=== PATIENT | male | born 1940 | race Caucasian/White ===

== ENCOUNTER 2018-08-27 05:39 | Outpatient (CLI) | payer MEDICARE ==
[~2018-08-27] VITALS: Ht 180.3 cm; Wt 98.9 kg
[~2018-08-27 05:39] MED LIST: ALLO300T2 PO; AMLO10TA PO; AMLO5TAB2 PO; ASP81CT PO; ASPI-892 PO; ATOR20TA66 PO; ATOR40TA70 PO; FINA1TAB10 PO; FINA5TAB6 PO; LOSA100T7 PO; METO100T5 PO; MTP25TSR PO; MV,M1TAB2 PO; NFAMINITAB PO; OMEG-105 PO; OMEG1CAP57 PO; PNT40TEC PO; SCR1T1 PO; TAMS0.4C2 PO; TAMS0.4C9 PO
[2018-08-27] MEDS ORDERED: LATA2.5D5 OU (13:32)
[2018-08-27] MEDS ORDERED: ASPI-586 PO (13:32)
[2018-08-27] MEDS ORDERED: FINA5TAB6 PO (13:32)
[2018-08-27] MEDS ORDERED: LOSA100T57 PO (13:32)
[2018-08-27] MEDS ORDERED: METO-395 PO (13:32)
[2018-08-27] MEDS ORDERED: MV M PO (13:32)
[2018-08-27] MEDS ORDERED: ATOR40TA70 PO (13:32)
[2018-08-27] MEDS ORDERED: TAMS0.4C98 PO (13:32)
[2018-08-27] MEDS ORDERED: AMLO10TA7 PO (13:32)
== END 2018-08-27 13:34 | disposition home or self-care (01) ==
LOC: PREOP 05:39
PROVIDERS: ATTEND Surgery
DX: Z01.818 Encounter for other preprocedural examination (principal)

== ENCOUNTER 2019-10-28 16:12 | Emergency (ER) | payer MEDICARE ==
[~2019-10-28] VITALS: Ht 177.8 cm; Wt 96.6 kg
[~2019-10-28 16:12] MED LIST changes: +AMLO10TA7 PO; +ASPI-586 PO; +LATA2.5D5 OU; +LOSA100T57 PO; +MTP100TCR PO; +MV M PO; +TMSL.4C PO
[2019-10-28] MEDS ORDERED: ONDANSETRON 4 MG/2 ML (SDV) Z0FRAN IVP ONE (16:30)
[2019-10-28] MEDS ORDERED: NS IV 1000 ML 1,000 ML IV SCH (16:30)
[2019-10-28 16:43] LABS: BASOPHILS % (AUTO) 0 % (0-10); EOSINOPHILS # (AUTO) 0.2 10^3/uL (0.0-0.3); EOSINOPHILS % (AUTO) 1 % (0-10); HEMATOCRIT 42 % (40-54); HEMOGLOBIN 14.2 G/DL (13.3-17.7); LYMPHOCYTES # (AUTO) 0.7 X 10^3 (1.0-4.0); LYMPHOCYTES % (AUTO) 6 % (12-44); MEAN CORPUSCULAR HEMOGLOBIN 30 PG (25-34); MEAN CORPUSCULAR HGB CONC 34 G/DL (32-36); MEAN CORPUSCULAR VOLUME 90 FL (80-99); MEAN PLATELET VOLUME 9.1 FL (7.4-10.4); MONOCYTES # (AUTO) 1.4 X 10^3 (0.0-1.0); MONOCYTES % (AUTO) 11 % (0-12); NEUTROPHILS # (AUTO) 10.2 X 10^3 (1.8-7.8); NEUTROPHILS % (AUTO) 82 % (42-75); PLATELET COUNT 187 10^3/uL (130-400); RED CELL DISTRIBUTION WIDTH 14.9 % (10.0-14.5); WHITE BLOOD COUNT 12.4 10^3/uL (4.3-11.0)
[2019-10-28 16:52] LABS: CHLORIDE 105 MMOL/L (98-107); POTASSIUM 3.9 MMOL/L (3.6-5.0); SODIUM 139 MMOL/L (135-145)
--- NOTE | 2019-10-28 16:52 | ED General ---
General Chief Complaint: General Problems/Pain Stated Complaint: HIGH BP,LEG PAIN Nursing Triage Note: patient complaint of fatigue x2-3 days. stats headache. works outside in the heat. nausea. chills last night. Nursing Sepsis Screen: No Definite Risk Source of Information: Patient Exam Limitations: No Limitations History of Present Illness Date Seen by Provider: Oct 28, 2019 Time Seen by Provider: 16:49 Initial Comments To ER by private vehicle with reports of general fatigue. This is been present for the past 2-3 days. 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 Most of his work is outdoors in the heat that she can go inside to cool off occasionally. He reports queasy stomach, nausea, headache, chills last night. History of coronary artery disease with stenting. When he had his last heart attack he had some of these similar symptoms. He denies any chest pain shortness of breath. He has not eaten anything since noon yesterday because of no appetite. Timing/Duration: 1-2 Days Severity: Moderate Associated Systoms: Headaches, Nausea/Vomiting, Weakness Allergies and Home Medications Allergies Coded Allergies: No Known Drug Allergies (Unverified , 12/29/09) Home Medications Allopurinol 300 Mg Tablet, 300 MG PO DAILY, (Reported) Amlodipine Besylate 10 Mg Tablet, 10 MG PO DAILY, (Reported) Aspirin 81 Mg Tablet.dr, 81 MG PO DAILY, (Reported) Atorvastatin Calcium 40 Mg Tablet, 20 MG PO HS, (Reported) take 1/2 of 40mg tab Finasteride 5 Mg Tablet, 5 MG PO DAILY, (Reported) Latanoprost 2.5 Ml Drops, 1 DROP OU HS, (Reported) Losartan Potassium 100 Mg Tablet, 50 MG PO BID, (Reported) take 1/2 of 100mg tab Metoprolol Succinate 100 Mg Tab.er.24h, 50 MG PO BID, (Reported) Mv,Minerals/FA/Lycopene/Ginkgo 1 Each Tablet, 1 EACH PO DAILY, (Reported) Tamsulosin HCl 0.4 Mg Cap, 0.4 MG PO DAILY, (Reported) Patient Home Medication List Home Medication List Reviewed: Yes Review of Systems Review of Systems Constitutional: see HPI EENTM: see HPI Respiratory: no symptoms reported; No cough, No short of breath Cardiovascular: see HPI; No chest pain; Hx of Intervention; No palpitations, No syncope; vascular heart diseas Genitourinary: no symptoms reported Musculoskeletal: no symptoms reported Skin: no symptoms reported Psychiatric/Neurological: No Symptoms Reported Hematologic/Lymphatic: No Symptoms Reported Immunological/Allergic: no symptoms reported Past Dsmymnn-Nieits-Dklsri Hx Patient Social History Alcohol Use: Denies Use Recreational Drug Use: No Smoking Status: Never a Smoker 2nd Hand Smoke Exposure: No Recent Foreign Travel: No Contact w/Someone Who Travel: No Recent Infectious Disease Expo: No Recent Hopitalizations: No Physical Abuse: No Sexual Abuse: No Mistreated: No Fear: No Immunizations Up To Date Tetanus Booster (TDap): Unknown Seasonal Allergies Seasonal Allergies: No Past Medical History Surgeries: Yes (hemmorhoids) Coronary Stent Respiratory: Yes Sleep Apnea Currently Using CPAP: Yes Cardiac: Yes (2006 DC w angioplasty; 2008 stent x1) Coronary Artery Disease, Heart Attack, High Cholesterol, Hypertension Neurological: Yes TIA Reproductive Disorders: No Sexually Transmitted Disease: No HIV/AIDS: No Genitourinary: Yes Benign Prostatic Hyperpl, Prostate Problems Gastrointestinal: No Gastroesophageal Reflux Musculoskeletal: Yes Arthritis, Chronic Back Pain, Gout Endocrine: No HEENT: Yes (bilat retinal detachment) Loss of Vision: Right Hearing Impairment: Hard of Hearing Cancer: No Psychosocial: No Integumentary: No Blood Disorders: No Family Medical History FH: stomach cancer maternal grandfather, Onset:60 years & older Myocardial infarction 19 FATHER, Onset:60 years & older 19 MOTHER, Onset:60 years & older G8 BROTHER, Onset:60 years & older paternal grandfather, Onset:Unknown Hypertension Physical Exam Vital Signs Vital Signs - First Documented 10/28/19 16:43 Temp 36.8 Pulse 67 Resp 20 B/P (MAP) 106/68 (81) Pulse Ox 93 O2 Delivery Room Air Capillary Refill : Less Than 3 Seconds Height, Weight, BMI Height: 5'11.00" Weight: 218lbs. 0.0oz. 98.193100ge; 30.00 BMI Method: General Appearance: No Apparent Distress, WD/WN, Other (alert and oriented, mentating well, blood pressure 106/68 heart rate 66 sinus oxygen 94% room air respiratory rate 13.) Eyes: Bilateral Eye Normal Inspection, Bilateral Eye PERRL, Bilateral Eye EOMI Neck: Full Range of Motion, Normal Inspection Respiratory: Lungs Clear, Normal Breath Sounds, No Accessory Muscle Use, No Respiratory Distress Cardiovascular: Regular Rate, Rhythm, Normal Peripheral Pulses Gastrointestinal: Normal Bowel Sounds, Non Tender, Soft Extremity: Normal Capillary Refill, Normal Inspection Neurologic/Psychiatric: Alert, Oriented x3 Skin: Normal Color, Warm/Dry Progress/Results/Core Measures Suspected Sepsis Recent Fever Within 48 Hours: No Infection Criteria Present: None New/Unexplained Altered Menta: No Sepsis Screen: No Definite Risk SIRS Temperature: Pulse: 67 Respiratory Rate: 20 Laboratory Tests 10/28/19 16:30: White Blood Count 12.4H Blood Pressure 106 /68 Mean: 81 Laboratory Tests 10/28/19 16:30: Creatinine 1.32H, Platelet Count 187, Total Bilirubin 3.0H Results/Orders Lab Results Laboratory Tests Test 10/28/19 16:30 10/28/19 17:35 Range/Units White Blood Count 12.4 H 4.3-11.0 10^3/uL Red Blood Count 4.67 4.35-5.85 10^6/uL Hemoglobin 14.2 13.3-17.7 G/DL Hematocrit 42 40-54 % Mean Corpuscular Volume 90 80-99 FL Mean Corpuscular Hemoglobin 30 25-34 PG Mean Corpuscular Hemoglobin Concent 34 32-36 G/DL Red Cell Distribution Width 14.9 H 10.0-14.5 % Platelet Count 187 130-400 10^3/uL Mean Platelet Volume 9.1 7.4-10.4 FL Neutrophils (%) (Auto) 82 H 42-75 % Lymphocytes (%) (Auto) 6 L 12-44 % Monocytes (%) (Auto) 11 0-12 % Eosinophils (%) (Auto) 1 0-10 % Basophils (%) (Auto) 0 0-10 % Neutrophils # (Auto) 10.2 H 1.8-7.8 X 10^3 Lymphocytes # (Auto) 0.7 L 1.0-4.0 X 10^3 Monocytes # (Auto) 1.4 H 0.0-1.0 X 10^3 Eosinophils # (Auto) 0.2 0.0-0.3 10^3/uL Basophils # (Auto) 0.0 0.0-0.1 10^3/uL Neutrophils % (Manual) 76 % Lymphocytes % (Manual) 8 % Monocytes % (Manual) 10 % Band Neutrophils 6 % Blood Morphology Comment NORMAL Sodium Level 139 135-145 MMOL/L Potassium Level 3.9 3.6-5.0 MMOL/L Chloride Level 105 98-107 MMOL/L Carbon Dioxide Level 23 21-32 MMOL/L Anion Gap 11 5-14 MMOL/L Blood Urea Nitrogen 16 7-18 MG/DL Creatinine 1.32 H 0.60-1.30 MG/DL Estimat Glomerular Filtration Rate 52 BUN/Creatinine Ratio 12 Glucose Level 129 H 70-105 MG/DL Calcium Level 9.0 8.5-10.1 MG/DL Corrected Calcium 9.0 8.5-10.1 MG/DL Total Bilirubin 3.0 H 0.1-1.0 MG/DL Aspartate Amino Transf (AST/SGOT) 118 H 5-34 U/L Alanine Aminotransferase (ALT/SGPT) 184 H 0-55 U/L Alkaline Phosphatase 150 H 40-136 U/L Total Creatine Kinase 90 30-200 U/L Troponin I < 0.028 <0.028 NG/ML B-Type Natriuretic Peptide 202.3 H <100.0 PG/ML Total Protein 7.3 6.4-8.2 GM/DL Albumin 4.0 3.2-4.5 GM/DL Thyroid Stimulating Hormone (TSH) 0.54 0.35-4.94 UIU/ML Urine Color YELLOW Urine Clarity CLEAR Urine pH 6.5 5-9 Urine Specific [place] 1.015 L 1.016-1.022 Urine Protein 1+ H NEGATIVE Urine Glucose (UA) NEGATIVE NEGATIVE Urine Ketones 1+ H NEGATIVE Urine Nitrite NEGATIVE NEGATIVE Urine Bilirubin 1+ H NEGATIVE Urine Urobilinogen 4.0 < = 1.0 MG/DL Urine Leukocyte Esterase NEGATIVE NEGATIVE Urine RBC (Auto) 2+ H NEGATIVE Urine RBC 25-50 H /HPF Urine WBC 2-5 /HPF Urine Crystals PRESENT H /LPF Urine Amorphous Sediment FEW RADHA URATES H /LPF Urine Bacteria TRACE /HPF Urine Casts NONE /LPF Urine Mucus MODERATE H /LPF Urine Culture Indicated NO My Orders Orders - [employer] Cbc With Automated Diff (10/28/19 16:29) Comprehensive Metabolic Panel (10/28/19 16:29) Thyroid Stimulating Hormone (10/28/19 16:29) Ua Culture If Indicated (10/28/19 16:29) Chest 1 View, Ap/Pa Only (10/28/19 16:29) BNP (10/28/19 16:29) Ekg Tracing (10/28/19 16:29) Troponin I (10/28/19 16:29) Ed Iv/Invasive Line Start (10/28/19 16:29) Ns Iv 1000 Ml (Sodium Chloride 0.9%) (10/28/19 16:30) Ondansetron Injection (Zofran Injectio (10/28/19 16:30) Manual Differential (10/28/19 16:30) Creatine Kinase (10/28/19 17:07) Ns Iv 500 Ml (Sodium Chloride 0.9%) (10/28/19 17:45) Medications Given in ED Current Medications Medications Dose Ordered Sig/Leandro Route Start Time Stop Time Status Last Admin Dose Admin Ondansetron HCl 8 mg ONCE ONCE IVP 10/28/19 16:30 10/28/19 16:33 DC 10/28/19 16:53 8 MG Vital Signs/I&O 10/28/19 10/28/19 16:43 19:01 Temp 36.8 36.9 Pulse 67 59 Resp 20 18 B/P (MAP) 106/68 (81) 119/69 Pulse Ox 93 93 O2 Delivery Room Air Room Air Capillary Refill : Less Than 3 Seconds Blood Pressure Mean: 81 Departure Communication (Admissions) 1804-patient states that he is feeling a little better at this time, heart rate 61 sinus blood pressure 115/67 oxygen 94% room air. His urine was rather concentrated and dark. He received a total of 1.5 L of IV fluids. Absolutely no tenderness to palpation to the right upper quadrant nor has he had any pain to this location. Suspect liver enzyme elevation secondary to dehydration/heat related illness. I have him follow-up with Dr. Orlando next week for recheck of these. We'll send him home to hydrate and stay out of the heat this weekend. Impression Primary Impression: Acute renal failure (ARF) Qualified Codes: N17.9 - Acute kidney failure, unspecified Additional Impressions: Dehydration Heat effects Disposition: HOME, SELF-CARE Condition: Improved Departure-Patient Inst. Decision time for Depature: 18:11 Referrals: MIGUEL ORLANDO MD (PCP/Family) Primary Care Physician Patient Instructions: Why Water Is Important to Health Add. Discharge Instructions: 1. Stay out of the heat this weekend. Stay indoors in the air conditioning and drink plenty of fluids. Follow-up with Dr. Orlando next week. Call tomorrow to make an appointment to be seen. Return to ER for any worsening or other concerns in the meantime. All discharge instructions reviewed with patient and/or family. Voiced understanding. Work/School Note: Work Release Form Date Seen in the Emergency Department: Oct 28, 2019 Return to Work: Oct 30, 2019 Copy Copies To 1: MIGUEL ORLANDO MD, PETER J APRN Oct 28, 2019 16:52
[2019-10-28 16:54] LABS: GLUCOSE 129 MG/DL (70-105)
[2019-10-28 16:55] LABS: TOTAL PROTEIN 7.3 GM/DL (6.4-8.2)
[2019-10-28 16:56] LABS: CARBON DIOXIDE 23 MMOL/L (21-32)
[2019-10-28 16:58] LABS: ALKALINE PHOSPHATASE 150 U/L (40-136); CREATININE SERUM 1.32 MG/DL (0.60-1.30); GFR ESTIMATED 52
[2019-10-28 16:59] LABS: BUN/CREATININE RATIO 12
[2019-10-28 17:01] LABS: ALANINE AMINOTRANSFERASE 184 U/L (0-55); BAND NEUTROPHILS 6 %; LYMPHOCYTES % (MANUAL) 8 %; MONOCYTES % (MANUAL) 10 %; NEUTROPHILS % (MANUAL) 76 %; RBC MORPH NORMAL
--- NOTE | 2019-10-28 17:27 | Diagnostic Imaging Report ---
EXAMINATION: Portable erect AP chest at 05:19 p.m. INDICATION: Weakness, chills. FINDINGS: The cardiomegaly noted on the prior exam of 09/07/2015 is again evident and no different. The lungs are clear. There is no sign of failure, pneumonia, or pleural effusion. The mediastinum is not widened. The osseous structures are intact. IMPRESSION: There is cardiomegaly, but there is no evidence for an acute cardiopulmonary abnormality. Dictated by: Dictated on workstation # [id number]
[2019-10-28 17:44] LABS: CLARITY,URINE CLEAR; COLOR,URINE YELLOW; GLUCOSE, URINE (UA) NEGATIVE (NEGATIVE); KETONES,URINE 1+ (NEGATIVE); LEUKOCYTE ESTERASE ,URINE NEGATIVE (NEGATIVE); NITRITE,URINE NEGATIVE (NEGATIVE); PH,URINE 6.5 (5-9); PROTEIN,URINE 1+ (NEGATIVE)
[2019-10-28] MEDS ORDERED: NS IV 500 ML 500 ML IV SCH (17:45)
[2019-10-28 18:00] LABS: AMORPHOUS SEDIMENT,UR FEW AMOR URATES /LPF; BACTERIA,URINE TRACE /HPF; BILIRUBIN,URINE 1+ (NEGATIVE); RBC,URINE 25-50 /HPF
[2019-10-28 19:01] VITALS: BP 119/69
--- OUTSIDE RECORDS SUMMARY | 2019-10-28 19:08 | XMS REPORT | CCD ---
Author Author Clementine Orlando Organization Jesusita Orlando MD, [facility] Address [address] [place] [address] Phone Care Team Providers Care Efficiency Manager Name Role Phone PP Unavailable CCM Unavailable Summary Purpose Interface Exchange Insurance Providers Payer name Policy type / Coverage type Covered alliance party ID Effective Begin Date Effective End Date WPS Medicare Part B Medicare Part B [id number] Unknown Unknown Family history Grandfather Diagnosis Age At Onset Heart disease Unknown Mother Diagnosis Age At Onset Stroke Unknown Diabetes Unknown Heart Attack Unknown Hyperlipidemia Unknown Hypertension Unknown Father Diagnosis Age At Onset Stroke Unknown Alcoholism Unknown Hypertension Unknown Hyperlipidemia Unknown Heart Attack Unknown Diabetes Unknown Brother Diagnosis Age At Onset Hyperlipidemia Unknown Hypertension Unknown Alcoholism Unknown Depression Unknown Heart Attack Unknown Stroke Unknown Social History Social History Element Codes Description Effective Dates Marital status Unknown S wilner 09/20/2014 Number of children Unknown 2 09/20/2014 Employment Unknown 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 09/20/[address]: 856492628 Never smoker 09/20/[address]: 422332816 Never drinks alcohol 09/20/2014 Allergies, Adverse Reactions, Alerts Substance Reaction Codes Entered Date Inactivated Date Status * NO KNOWN FOOD TOYA RGIES Unknown 09/20/2014 No Inactive Date Active allergy Unknown 12/12/2016 No In active Date Active lisinopril RxNorm: 64871 12/12/2016 No Inactive Date Active MORPHINE SULFATE RxNorm: 7052 12/12/2016 No Inactive Date Active Past Medical History Illness Codes Condition Status Onset Date Resolved Date Essential (primary) hypertension ICD-9: 401.9 ICD-10: I10 Active 11/12/2016 Unknown Mixed hyperlipidemia ICD-9: 272.2 ICD-10: E78.2 Active 11/12/2016 Unknown Encounter for genera l adult medical examination with abnormal findings ICD-9: V70.0 ICD-10: Z00.01 Active 12/12/2016 Unknown Hypertension Unknown Active 11/12/2016 Unknow n Gastro-esophageal re flux disease without esophagitis ICD-9: 530.81 ICD-10: K21.9 Active 11/12/2016 Unknown 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 Active 11/12/2016 Unknown Other fatigue ICD-9: 780.79 ICD-10: R53.83 Active 11/12/2016 Unknown Dizziness and giddiness ICD-9: 780.4 ICD-10: R42 Active 11/13/2015 Unknown Encounter for immuni zation ICD-9: V03.89 ICD-10: Z23 Active 09/04/2015 Unknown Laceration without f oreign body of abdominal wall, unspecified quadrant without penetration into peritoneal cavity, initial encounter ICD-9: 879.2 ICD-10: S31.119A Active 09/04/2015 Unknown Other iron deficienc y anemias ICD-9: 280.1 ICD-10: D50.8 Active 07/13/2015 Unknown Dark urine ICD-9: 791.9 Active 10/02/2014 Unknow n Hospital discharge f ollow-up ICD-9: V67.59 Active Unknown ORTHOSTATIC HYPOTENSION ICD-9: 458.0 Active 09/19/2014 Unknown Syncope ICD-9: 780.2 Active 09/19/2014 Unknow n Problems Condition Codes Effectiv e Dates Condition Status Essential (primary) hypertension ICD-9: 401.9 ICD-10: I10 11/12/2016 Active Mixed hyperlipidemia ICD-9: 272.2 ICD-10: E78.2 11/12/2016 Active Encounter for genera l adult medical examination with abnormal findings ICD-9: V70.0 ICD-10: Z00.01 12/12/2016 Active Hypertension Unknown 11/12/2016 Active Gastro-esophageal re flux disease without esophagitis ICD-9: 530.81 ICD-10: K21.9 11/12/2016 Active 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 11/12/2016 Active Other fatigue ICD-9: 780.79 ICD-10: R53.83 11/12/2016 Active Dizziness and giddiness ICD-9: 780.4 ICD-10: R42 11/13/2015 Active Encounter for immuni zation ICD-9: V03.89 ICD-10: Z23 09/04/2015 Active Laceration without f oreign body of abdominal wall, unspecified quadrant without penetration into peritoneal cavity, initial encounter ICD-9: 879.2 ICD-10: S31.119A 09/04/2015 Active Other iron deficienc y anemias ICD-9: 280.1 ICD-10: D50.8 07/13/2015 Active Dark urine ICD-9: 791.9 10/02/2014 Active Hospital discharge f ollow-up ICD-9: V67.59 09/19/2014 Active ORTHOSTATIC HYPOTENSION ICD-9: 458.0 09/19/2014 Active Syncope ICD-9: 780.2 09/19/2014 Active Medications Medication Codes Instruc tions Start Date Stop Date Sta tus Fill Instructions allopurinol 300 mg t ablet RxNorm: 233261 TAKE 1 TABLET BY MOUT H ONCE DAILY 11/25/2018 No Stop Date Active allopurinol 300 mg t ablet RxNorm: 452349 TAKE 1 TABLET BY MOUT H ONCE DAILY 05/08/2018 11/24/2018 In active atorvastatin 40 mg t ablet RxNorm: 730378 1/2 Tablet(s) PO perla y TAKE ONE-HALF TABLET BY MOUTH ONCE DAILY 02/05/2018 01/30/2019 Active allopurinol 300 mg t ablet RxNorm: 537601 TAKE 1 TABLET BY MOUT H ONCE DAILY 02/04/2018 05/07/2018 In active allopurinol 300 mg t ablet RxNorm: 530675 TAKE ONE TABLET BY MO UTH ONCE DAILY 10/20/2017 02/03/2018 In active atorvastatin 40 mg t ablet RxNorm: 989695 TAKE ONE-HALF TABLET BY MOUTH ONCE DAILY 02/10/2017 02/04/2018 In active allopurinol 300 mg t ablet RxNorm: 222488 TAKE ONE TABLET BY MO UTH ONCE DAILY 01/17/2017 10/13/2017 In active losartan 100 mg tablet RxNorm: 672644 1/2 Tablet(s) TAKE HALF TABLET BY MOUTH TWICE DAILY 11/12/2016 No Stop Date Active losartan 100 mg tablet RxNorm: 222110 TAKE ONE TABLET BY MOUTH TWICE DAILY 11/11/2016 11/11/2016 In active allopurinol 300 mg t ablet RxNorm: 338528 TAKE ONE TABLET BY [facility] ONCE DAILY 10/16/2016 01/13/2017 In active atorvastatin 40 mg t ablet RxNorm: 481612 TAKE ONE-HALF TABLET BY MOUTH ONCE DAILY 08/12/2016 02/07/2017 In active allopurinol 300 mg t ablet RxNorm: 512182 TAKE ONE TABLET BY [facility] ONCE DAILY 01/09/2016 10/04/2016 In active atorvastatin 40 mg t ablet RxNorm: 461941 TAKE ONE-HALF TABLET BY MOUTH ONCE DAILY 11/16/2015 08/12/2016 In active allopurinol 300 mg t ablet RxNorm: 030470 1 Tablet(s) PO daily 04/04/2015 12/29/2015 Inactive metoprolol tartrate 100 mg tablet RxNorm: 173928 1 Tablet(s) PO BID 11/28/2014 03/27/2015 Inactive metoprolol tartrate 100 mg tablet RxNorm: 605762 1/2 Tablet(s) PO BID 11/28/2014 11/27/2014 In active atorvastatin 40 mg t ablet RxNorm: 661037 1/2 Tablet(s) PO daily 11/14/2014 11/08/2015 Inactive losartan 100 mg tablet RxNorm: 608071 1 Tablet(s) PO BID 11/11/2014 11/05/2015 Inactive tamsulosin ER 0.4 mg capsule,extended release 24 hr RxNorm: 355353 1 Capsule(s) PO daily No Start Date Active metoprolol succinate ER 100 mg tablet,extended release 24 hr RxNorm: 396754 1/2 Tablet(s) PO BID No Start Date Active travoprost 0.004 % e ye drops RxNorm: 084682 1 Drop(s) ophthalmic (eye) right eye QHS No Start Date Active finasteride 5 mg tablet RxNorm: 581266 1 Tablet(s) PO daily No Start Date Active amlodipine 10 mg tablet RxNorm: 836696 1 Tablet(s) PO daily No Start Date Active ICaps oral RxNorm: 46767 oral No Start Date Active aspirin 81 mg tablet ,delayed release RxNorm: 639546 1 Tablet(s) PO daily No Start Date Active Vitamin C & E Combin ation oral RxNorm: [address] art Date 11/11/2016 Inactive atorvastatin 20 mg t ablet RxNorm: 804649 1 Tablet(s) PO daily No Start Date 11/13/2014 Inactive metoprolol tartrate 100 mg tablet RxNorm: 682594 1/2 Tablet(s) PO BID No Start Date 11/27/2014 Inactive Multivitamin & [employer] Worker al Formula oral RxNorm: oral No Start D ate 11/11/2016 Inactive losartan 100 mg tablet RxNorm: 681621 1/2 Tablet(s) PO BID No Start Date 11/10/2014 Inactive allopurinol 300 mg t ablet RxNorm: 214362 1 Tablet(s) PO daily No Start Date 04/03/2015 Inactive pantoprazole 40 mg t ablet,delayed release RxNorm: 565403 1 Tablet(s) PO daily No Start Date 11/11/2016 Inactive metoprolol tartrate 100 mg tablet RxNorm: 737835 1/2 Tablet(s) PO BID No Start Date 02/04/2018 Inactive Protonix 40 mg table t,delayed release RxNorm: 359448 1 Tablet(s) PO daily No Start Date 02/04/2018 Inactive Carafate 1 gram tablet RxNorm: 870706 1 Tablet(s) PO QID No Start Date 11/11/2016 Inactive Medication Administered No Medication Administered data Immunizations Vaccine Codes Date Status Tetanus, Diptheria, Pertussis CVX: 09/05/2015 completed Tetanus/Diptheria CVX: 09/05/2015 completed Pneumococcal (Adult) CVX: 33 09/20/2012 completed Assessments Condition Codes Effectiv e Dates Essential (primary) hypertension ICD -10: I10 ICD-9: 401.9 02/05/2018 Mixed hyperlipidemia ICD-10: E78.2 ICD-9: 272.2 02/05/2018 Encounter for general adult medical exam ination with abnormal findings ICD-10: Z00.01 ICD-9: V70.0 12/12/2016 Iron deficiency anemia secondary to blood loss (chroni c) ICD- 10: D50.0 ICD-9: 280.0 11/12/2016 Other fatigue ICD-10: R53.83 ICD-9: 780.79 11/12/2016 Gastro-esophageal reflux disease without esophagitis ICD-10: K21.9 ICD-9: 530.81 11/12/2016 Dizziness and giddiness ICD-10: R42 ICD-9: 780.4 11/14/2015 Laceration without foreign body of abdom inal wall, unspecified quadrant without penetration into peritoneal cavity, initial encounter ICD-10: S31.119A ICD-9: 879.2 09/05/2015 Encounter for immunization ICD-10: Z 23 ICD-9: V03.89 09/05/2015 Other iron deficiency anemias ICD-10 : D50.8 ICD-9: 280.1 07/14/2015 Dark urine ICD-9: 791.9 10/03/2014 Syncope ICD-9: 780.2 ORTHOSTATIC HYPOTENSION ICD-9: 458.0 09/20/2014 Hospital discharge follow-up ICD-9: V67.59 09/20/2014 Reason For Visit Reason For Visit Effective Dates Notes hypertension 02/05/2018 Annual Medicare Wellness Exam 12/12/2016 hypertension 11/12/2016 vertigo 11/14/2015 anemia 07/14/2015 Hospital Follow Up 09/20/2014 Results Observation Observation Code Item Item Code Result Date Comp Metabolic Abl612 NA 135 mEq/L 11/15/2015 Comp Metabolic Gfu195 K 4.2 mEq/L 11/15/2015 Comp Metabolic Zhw685 CL 103 mEq/L 11/15/2015 Comp Metabolic Pme510 CO2 25.0 mEq/L 11/15/2015 Comp Metabolic Che208 AN ION GAP 11 11/15/2015 Comp Metabolic Jye392 GL UCOSE 107 mg/dL 11/15/2015 Comp Metabolic Ymu202 Cr eat 1.3 mg/dL 11/15/2015 Comp Metabolic Zqi103 eG FR 55 ml/min/1.73m2 11/14 Comp Metabolic Bzz577 BUN 22 mg/dL 11/15/2015 Comp Metabolic Yqr943 B/ C Ratio 16.4 Ratio 11/15/2015 Comp Metabolic Zog482 CA LCIUM 9.2 mg/dL 11/15/2015 Comp Metabolic Nam548 AL K PHOS 68 U/L 11/15/2015 Comp Metabolic Hov641 T(SGOT) 15 U/L 11/15/2015 Comp Metabolic Kkw352 AL T(SGPT) 12 U/L 11/15/2015 Comp Metabolic Qcx980 BI LI T 0.6 mg/dL 11/15/2015 Comp Metabolic Rqx542 AL BUMIN 4.2 g/dL 11/15/2015 Comp Metabolic Qbt814 TP RO 6.9 g/dL 11/15/2015 Comp Metabolic Vpo405 GL OB 2.7 g/dL 11/15/2015 Comp Metabolic Lxg331 A/ G Ratio 1.6 Ratio 11/15/2015 Comp Metabolic Ozv570 Os mo 274 mOsmo 11/15/2015 Tsh Ord6 hTSH II 1.21 uIU/mL 11/15/2015 Cbc With Differential Ord2 WBC 6.60 K/ul 11/15/2015 Cbc With Differential Ord2 RBC 4.27 M/ul 11/15/2015 Cbc With Differential Ord2 HGB 12.8 g/dl 11/15/2015 Cbc With Differential Ord2 HCT 38.8 % 11/15/2015 Cbc With Differential Ord2 Neut% 51.2 % 11/15/2015 Cbc With Differential Ord2 MCV 90.9 fl 11/15/2015 Cbc With Differential Ord2 Lymph% 31.2 % 11/15/2015 Cbc With Differential Ord2 MCH 30.0 pg 11/15/2015 Cbc With Differential Ord2 [place]% 12.4 % 11/15/2015 Cbc With Differential Ord2 MCHC 33.0 pg 11/15/2015 Cbc With Differential Ord2 Eos% 4.4 % 11/15/2015 Cbc With Differential Ord2 PLT 136 K/ul 11/15/2015 Cbc With Differential Ord2 Baso% 0.8 % 11/15/2015 Cbc With Differential Ord2 RDW 16.4 % 11/15/2015 Cbc With Differential Ord2 Neut ABS# 3.38 K/ul 11/15/2015 Cbc With Differential Ord2 Lymph ABS# 2.06 K/ul 11/15/2015 Cbc With Differential Ord2 [place] ABS# 0.8 K/ul 11/15/2015 Cbc With Differential Ord2 Eos ABS# 0.3 K/ul 11/15/2015 Cbc With Differential Ord2 Baso ABS# 0.1 K/ul 11/15/2015 Cbc With Differential Ord2 WBC 6.48 K/ul 08/22/2015 Cbc With Differential Ord2 RBC 4.45 M/ul 08/22/2015 Cbc With Differential Ord2 HGB 11.9 g/dl 08/22/2015 Cbc With Differential Ord2 HCT 37.0 % 08/22/2015 Cbc With Differential Ord2 Neut% 54.1 % 08/22/2015 Cbc With Differential Ord2 MCV 83.1 fl 08/22/2015 Cbc With Differential Ord2 Lymph% 30.2 % 08/22/2015 Cbc With Differential Ord2 MCH 26.7 pg 08/22/2015 Cbc With Differential Ord2 [place]% 11.7 % 08/22/2015 Cbc With Differential Ord2 MCHC 32.2 pg 08/22/2015 Cbc With Differential Ord2 Eos% 3.7 % 08/22/2015 Cbc With Differential Ord2 PLT 204 K/ul 08/22/2015 Cbc With Differential Ord2 Baso% 0.3 % 08/22/2015 Cbc With Differential Ord2 RDW 23.4 % 08/22/2015 Cbc With Differential Ord2 Neut ABS# 3.50 K/ul 08/22/2015 Cbc With Differential Ord2 Lymph ABS# 1.96 K/ul 08/22/2015 Cbc With Differential Ord2 [place] ABS# 0.8 K/ul 08/22/2015 Cbc With Differential Ord2 Eos ABS# 0.2 K/ul 08/22/2015 Cbc With Differential Ord2 Baso ABS# 0.0 K/ul 08/22/2015 Cbc With Differential Ord2 New Analyzer Notice Please note new ref ranges s tarting 04-19-2015 due to implemntation of new five part differential hematolgy analyzer. 08/22/2015 Tibc Ord40 Iron 21 ug/dl 07/17/2015 Tibc Ord40 UIBC 383 ug/dL 07/17/2015 Tibc Ord40 TIBC 404 ug/dL 07/17/2015 Tibc Ord40 Fe-%Sat 5.2 % 07/17/2015 Cbc With Differential Ord2 WBC 6.74 K/ul 07/17/2015 Cbc With Differential Ord2 RBC 4.20 M/ul 07/17/2015 Cbc With Differential Ord2 HGB 10.1 g/dl 07/17/2015 Cbc With Differential Ord2 HCT 32.9 % 07/17/2015 Cbc With Differential Ord2 Neut% 55.4 % 07/17/2015 Cbc With Differential Ord2 MCV 78.3 fl 07/17/2015 Cbc With Differential Ord2 Lymph% 28.3 % 07/17/2015 Cbc With Differential Ord2 MCH 24.0 pg 07/17/2015 Cbc With Differential Ord2 [place]% 12.3 % 07/17/2015 Cbc With Differential Ord2 MCHC 30.7 pg 07/17/2015 Cbc With Differential Ord2 Eos% 3.7 % 07/17/2015 Cbc With Differential Ord2 PLT 267 K/ul 07/17/2015 Cbc With Differential Ord2 Baso% 0.3 % 07/17/2015 Cbc With Differential Ord2 RDW 19.1 % 07/17/2015 Cbc With Differential Ord2 Neut ABS# 3.73 K/ul 07/17/2015 Cbc With Differential Ord2 Lymph ABS# 1.91 K/ul 07/17/2015 Cbc With Differential Ord2 [place] ABS# 0.8 K/ul 07/17/2015 Cbc With Differential Ord2 Eos ABS# 0.3 K/ul 07/17/2015 Cbc With Differential Ord2 Baso ABS# 0.0 K/ul 07/17/2015 Cbc With Differential Ord2 New Analyzer Notice Please note new ref ranges s tarting 04-19-2015 due to implemntation of new five part differential hematolgy analyzer. 07/17/2015 Ferritin Ord22 FERRITIN 4.6 ng/mL 07/17/2015 Review of Systems System Result Effective Dates Constitutional No recent illness 02/05/2018 Constitutional No chills 02/05/2018 Constitutional No diaphoresis 02/05/2018 Constitutional No fever 02/05/2018 Eyes No blindness 2017 Ears/Nose/Throat/Neck No nasal discharge 02/05/2018 Cardiovascular No chest pain/pressure 02/05/2018 Cardiovascular No dyspnea 02/05/2018 Respiratory No cough 04/2017 Respiratory No dyspnea 1 04/07/2017 Neurologic No alteration of consciousness 02/05/2018 Neurologic No mental status change 02/05/2018 Gastrointestinal No abdominal pain 02/05/2018 Gastrointestinal No diarrhea 02/05/2018 Gastrointestinal No constipation 02/05/2018 Genitourinary/Nephrology No dysuria 02/05/2018 Musculoskeletal No joint complaint 02/05/2018 Dermatologic No rash 04/2017 Psychiatric No depression 02/05/2018 Psychiatric No anxiety 1 04/07/2017 Constitutional No recent illness 12/12/2016 Constitutional No chills 12/12/2016 Constitutional No diaphoresis 12/12/2016 Constitutional No fever 12/12/2016 Eyes No eye erythema 10/2016 Ears/Nose/Throat/Neck No nasal discharge 12/12/2016 Cardiovascular No chest pain/pressure 12/12/2016 Cardiovascular No dyspnea 12/12/2016 Respiratory No cough 10/2016 Respiratory No dyspnea 0 12/12/2016 Neurologic No alteration of consciousness 12/12/2016 Neurologic No mental status change 12/12/2016 Constitutional No recent illness 11/12/2016 Constitutional No night sweats 11/12/2016 Constitutional No chills 11/12/2016 Constitutional No fever 11/12/2016 Eyes vision change 11/12 Ears/Nose/Throat/Neck No headache 11/12/2016 Ears/Nose/Throat/Neck No nasal allergies 11/12/2016 Ears/Nose/Throat/Neck No nasal discharge 11/12/2016 Cardiovascular No chest pain/pressure 11/12/2016 Cardiovascular No edema 11/12/2016 Respiratory No chest congestion 11/12/2016 Respiratory No chest tightness 11/12/2016 Respiratory No cigarette smoking 11/12/2016 Respiratory No cough 11/2016 Gastrointestinal constipation 11/12/2016 Gastrointestinal No diarrhea 11/12/2016 Gastrointestinal No nausea 11/12/2016 Gastrointestinal No vomiting 11/12/2016 Genitourinary/Nephrology No dysuria 11/12/2016 Genitourinary/Nephrology No hematuria 11/12/2016 Musculoskeletal No bone fracture 11/12/2016 Musculoskeletal joint complaint 11/12/2016 Dermatologic No rash 11/2016 Dermatologic No sores Constitutional No anorexia 11/12/2016 Constitutional fatigue 0 11/12/2016 Constitutional No insomnia 11/12/2016 Constitutional No malaise 11/12/2016 Constitutional No weight loss 11/12/2016 Constitutional No weight gain 11/12/2016 Neurologic No alteration of consciousness 11/12/2016 Neurologic memory loss 0 11/12/2016 Gastrointestinal gas and bloating 11/12/2016 Gastrointestinal gastroesophageal reflux 11/12/2016 Constitutional No chills 11/14/2015 Constitutional No fever 11/14/2015 Eyes vision change 11/13 Ears/Nose/Throat/Neck No nasal allergies 11/14/2015 Ears/Nose/Throat/Neck No nasal discharge 11/14/2015 Cardiovascular No chest pain/pressure 11/14/2015 Cardiovascular No dyspnea 11/14/2015 Respiratory No productive sputum 11/14/2015 Respiratory No chest congestion 11/14/2015 Respiratory No cough 12/2015 Gastrointestinal No constipation 11/14/2015 Gastrointestinal No diarrhea 11/14/2015 Gastrointestinal No nausea 11/14/2015 Gastrointestinal No vomiting 11/14/2015 Musculoskeletal No joint complaint 11/14/2015 Dermatologic No rash 12/2015 Dermatologic No sores Neurologic No alteration of consciousness 11/14/2015 Ears/Nose/Throat/Neck No otalgia 11/14/2015 Ears/Nose/Throat/Neck No facial weakness 11/14/2015 Ears/Nose/Throat/Neck No facial pain 11/14/2015 Cardiovascular No syncope 11/14/2015 Cardiovascular No palpitations 11/14/2015 Respiratory No dyspnea 0 11/14/2015 Genitourinary/Nephrology No flank pain 11/14/2015 Neurologic No mental status change 11/14/2015 Neurologic No gait abnormality 11/14/2015 Neurologic No pain, facial 11/14/2015 Neurologic No paresthesia 11/14/2015 Neurologic No weakness 0 11/14/2015 Constitutional No chills 07/14/2015 Constitutional No fever 07/14/2015 Eyes vision change 07/13 Ears/Nose/Throat/Neck No headache 07/14/2015 Ears/Nose/Throat/Neck No nasal allergies 07/14/2015 Ears/Nose/Throat/Neck No nasal discharge 07/14/2015 Cardiovascular No chest pain/pressure 07/14/2015 Respiratory No chest congestion 07/14/2015 Respiratory No cough 11/2015 Gastrointestinal No constipation 07/14/2015 Gastrointestinal No diarrhea 07/14/2015 Gastrointestinal No nausea 07/14/2015 Gastrointestinal No vomiting 07/14/2015 Genitourinary/Nephrology No dysuria 07/14/2015 Genitourinary/Nephrology No hematuria 07/14/2015 Musculoskeletal No joint complaint 07/14/2015 Dermatologic No rash 11/2015 Dermatologic No sores Cardiovascular No dyspnea 07/14/2015 Respiratory No productive sputum 07/14/2015 Gastrointestinal No melena 07/14/2015 Neurologic No alteration of consciousness 07/14/2015 Constitutional recent illness 09/20/2014 Constitutional No fever 09/20/2014 Constitutional No chills 09/20/2014 Constitutional No night sweats 09/20/2014 Eyes vision change 09/20 Ears/Nose/Throat/Neck No headache 09/20/2014 Ears/Nose/Throat/Neck No nasal discharge 09/20/2014 Ears/Nose/Throat/Neck No nasal allergies 09/20/2014 Cardiovascular No edema 09/20/2014 Cardiovascular No chest pain/pressure 09/20/2014 Respiratory No chest congestion 09/20/2014 Respiratory No chest tightness 09/20/2014 Respiratory No cigarette smoking 09/20/2014 Respiratory No cough Gastrointestinal No constipation 09/20/2014 Gastrointestinal No diarrhea 09/20/2014 Gastrointestinal No nausea 09/20/2014 Gastrointestinal No vomiting 09/20/2014 Genitourinary/Nephrology No dysuria 09/20/2014 Genitourinary/Nephrology No hematuria 09/20/2014 Musculoskeletal No joint complaint 09/20/2014 Dermatologic No rash Dermatologic No sores Musculoskeletal No bone fracture 09/20/2014 Physical Exam Exam Name System Name It em Name Status Result Effective Dates Notes Full Exam - General 1994 Constitutional general appearance Overall: well developed 02/05/2018 None Full Exam - General 1994 Constitutional general appearance Overall: in no acute distress 02/05/2018 None Full Exam - General 1994 Constitutional general appearance Overall: well nourished 02/05/2018 None Full Exam - General 1994 Eyes conjunctiva/eyelids Overall: conjunctiva clear 02/05/2018 None Full Exam - General 1994 Eyes conjunctiva/eyelids Overall: eyelids normal 02/05/2018 None Full Exam - General 1994 Ears/Nose/Throat lips/teeth/gingiva Overall: benign lips 02/05/2018 None Full Exam - General 1994 Respiratory respiratory effort/rhythm Overall: no retractions 02/05/2018 None Full Exam - General 1994 Respiratory respiratory effort/rhythm Overall: normal rate 02/05/2018 None Full Exam - General 1994 Musculoskeletal head and neck Overall: head atraumatic 02/05/2018 None Full Exam - General 1994 Neurologic cranial nerves Overall: crainial nerves 2 - 12 grossly intact 02/05/2018 None Full Exam - General 1994 Psychiatric orientation/consciousness Overall: oriented to person, place and time 02/05/2018 None Full Exam - General 1994 Psychiatric mood and affect Overall: normal mood and affect 02/05/2018 None Full Exam - General 1994 Psychiatric appearance Overall: well-groomed, good eye contact 02/05/2018 None Full Exam - General 1994 Abdomen abdominal exam Overall: normal bowel sounds 02/05/2018 None Full Exam - General 1994 Abdomen abdominal exam Overall: no tenderness 02/05/2018 None Full Exam - General 1994 Integument inspection of skin Overall: few scattered moles, no gross abnormalities 02/05/2018 None Full Exam - General 1994 Cardiovascular auscultation of heart Overall: regular rate 02/05/2018 None Full Exam - General 1994 Cardiovascular auscultation of heart Overall: normal heart sounds 02/05/2018 None Full Exam - General 1994 Respiratory auscultation Overall: breath sounds clear bilaterally 02/05/2018 None Full Exam - General 1995 Constitutional general appearance Overall: well developed 12/12/2016 None Full Exam - General 1994 Constitutional general appearance Overall: in no acute distress 12/12/2016 None Full Exam - General 1995 Constitutional general appearance Overall: well nourished 12/12/2016 None Full Exam - General 1995 Eyes conjunctiva/eyelids Overall: conjunctiva clear 12/12/2016 None Full Exam - General 1994 Eyes conjunctiva/eyelids Overall: eyelids normal 12/12/2016 None Full Exam - General 1994 Ears/Nose/Throat lips/teeth/gingiva Overall: benign lips 12/12/2016 None Full Exam - General 1994 Respiratory respiratory effort/rhythm Overall: no retractions 12/12/2016 None Full Exam - General 1994 Respiratory respiratory effort/rhythm Overall: normal rate 12/12/2016 None Full Exam - General 1994 Musculoskeletal head and neck Overall: head atraumatic 12/12/2016 None Full Exam - General 1994 Neurologic cranial nerves Overall: crainial nerves 2 - 12 grossly intact 12/12/2016 None Full Exam - General 1994 Psychiatric orientation/consciousness Overall: oriented to person, place and time 12/12/2016 None Full Exam - General 1994 Psychiatric mood and affect Overall: normal mood and affect 12/12/2016 None Full Exam - General 1994 Psychiatric appearance Overall: well-groomed, good eye contact 12/12/2016 None Full Exam - General 1994 Constitutional general appearance Development: well developed 11/12/2016 None Full Exam - General 1994 Constitutional general appearance Development: appears stated age 0811/12/2016 None Full Exam - General 1994 Eyes conjunctiva/eyelids Overall: conjunctiva clear 11/12/2016 None Full Exam - General 1994 Eyes conjunctiva/eyelids Overall: cornea clear 11/12/2016 None Full Exam - General 1994 Eyes conjunctiva/eyelids Overall: eyelids normal 11/12/2016 None Full Exam - General 1994 Ears/Nose/Throat otoscopic exam Overall: external auditory canals clear 11/12/2016 None Full Exam - General 1994 Ears/Nose/Throat otoscopic exam Overall: tympanic membranes clear 11/12/2016 None Full Exam - General 1994 Neck inspection of neck Overall: normal size 11/12/2016 None Full Exam - General 1994 Neck inspection of neck Overall: normal appearance 11/12/2016 None Full Exam - General 1994 Respiratory auscultation Overall: breath sounds clear bilaterally 11/12/2016 None Full Exam - General 1994 Respiratory respiratory effort/rhythm Overall: no retractions 11/12/2016 None Full Exam - General 1994 Respiratory respiratory effort/rhythm Overall: normal rate 11/12/2016 None Full Exam - General 1994 Cardiovascular inspection of pedal pulses Dorsalis pedis: a normal exam 11/12/2016 None Full Exam - General 1994 Cardiovascular extremities Overall: no clubbing 11/12/2016 None Full Exam - General 1994 Cardiovascular auscultation of heart Overall: regular rate 11/12/2016 None Full Exam - General 1994 Cardiovascular auscultation of heart Overall: normal heart sounds 11/12/2016 None Full Exam - General 1994 Cardiovascular auscultation of heart Overall: no murmurs 11/12/2016 None Full Exam - General 1994 Abdomen abdominal exam Overall: no tenderness 11/12/2016 None Full Exam - General 1994 Abdomen abdominal exam Overall: normal bowel sounds 11/12/2016 None Full Exam - General 1994 Lymphatic neck nodes Overall: anterior cervical chain benign 11/12/2016 None Full Exam - General 1994 Lymphatic neck nodes Overall: posterior cervical chain benign 11/12/2016 None Full Exam - General 1994 Musculoskeletal digits and nails Nails: a normal exam 11/12/2016 None Full Exam - General 1994 Integument inspection of skin Overall: few scattered moles, no gross abnormalities 11/12/2016 None Full Exam - General 1994 Neurologic deep tendon reflexes Overall: deep tendon reflexes intact 11/12/2016 None Full Exam - General 1994 Neurologic cranial nerves Overall: crainial nerves 2 - 12 grossly intact 11/12/2016 None Full Exam - General 1994 Psychiatric orientation/consciousness Overall: oriented to person, place and time 11/12/2016 None Full Exam - General 1994 Psychiatric mood and affect Overall: normal mood and affect 11/12/2016 None Full Exam - General 1994 Psychiatric appearance Overall: well-groomed, good eye contact 11/12/2016 None Full Exam - General 1994 Eyes pupils and irises Pupil: irregular shape 11/12/2016 chronic Full Exam - General 1994 Eyes pupils and irises Pupil: fixed 11/12/2016 None Full Exam - General 1994 Constitutional general appearance Development: well developed 11/14/2015 None Full Exam - General 1994 Constitutional general appearance Development: appears stated age 0811/14/2015 None Full Exam - General 1994 Eyes conjunctiva/eyelids Overall: conjunctiva clear 11/14/2015 None Full Exam - General 1994 Eyes conjunctiva/eyelids Overall: cornea clear 11/14/2015 None Full Exam - General 1994 Eyes conjunctiva/eyelids Overall: eyelids normal 11/14/2015 None Full Exam - General 1994 Ears/Nose/Throat lips/teeth/gingiva Overall: benign lips 11/14/2015 None Full Exam - General 1994 Ears/Nose/Throat oral cavity/pharynx/larynx Overall: oral mucosa clear 11/14/2015 None Full Exam - General 1994 Respiratory auscultation Overall: breath sounds clear bilaterally 11/14/2015 None Full Exam - General 1994 Respiratory respiratory effort/rhythm Overall: no retractions 11/14/2015 None Full Exam - General 1994 Respiratory respiratory effort/rhythm Overall: normal rate 11/14/2015 None Full Exam - General 1994 Cardiovascular auscultation of heart Overall: regular rate 11/14/2015 None Full Exam - General 1994 Cardiovascular auscultation of heart Overall: normal heart sounds 11/14/2015 None Full Exam - General 1994 Abdomen abdominal exam Overall: no tenderness 11/14/2015 None Full Exam - General 1994 Abdomen abdominal exam Overall: normal bowel sounds 11/14/2015 None Full Exam - General 1994 Musculoskeletal gait and station Overall: normal gait 11/14/2015 None Full Exam - General 1994 Musculoskeletal gait and station Overall: normal station 11/14/2015 None Full Exam - General 1994 Integument inspection of skin Overall: no rash, lesions 11/14/2015 None Full Exam - General 1994 Neurologic cranial nerves Overall: crainial nerves 2 - 12 grossly intact 11/14/2015 None Full Exam - General 1994 Psychiatric orientation/consciousness Overall: oriented to person, place and time 11/14/2015 None Full Exam - General 1994 Psychiatric mood and affect Overall: normal mood and affect 11/14/2015 None Full Exam - General 1994 Psychiatric appearance Overall: well-groomed, good eye contact 11/14/2015 None Full Exam - General 1994 Ears/Nose/Throat otoscopic exam Overall: external auditory canals clear 11/14/2015 None Full Exam - General 1994 Ears/Nose/Throat otoscopic exam Overall: tympanic membranes clear 11/14/2015 None Full Exam - General 1994 Cardiovascular extremities Overall: no clubbing 11/14/2015 None Full Exam - General 1994 Musculoskeletal spine, ribs and pelvis Overall: good posture 11/14/2015 None Full Exam - General 1994 Neurologic gait Overall: no ataxia, no unsteadiness 11/14/2015 None Full Exam - General 1994 Neurologic mental status Overall: alert 11/14/2015 None Full Exam - General 1994 Neurologic mental status Overall: oriented 11/14/2015 None Full Exam - General 1994 Neurologic coordination Overall: no tremors 11/14/2015 None Full Exam - General 1994 Neurologic motor Overall: normal bulk, tone 11/14/2015 None Full Exam - General 1994 Neurologic motor Pronator drift: no drift 11/14/2015 None Full Exam - General 1994 Neurologic motor Strength (graded from 0-5, add X for atrophy): normal in all limbs 11/14/2015 None Full Exam - General 1994 Psychiatric speech Overall: normal quality, no aphasia 11/14/2015 None Full Exam - General 1994 Psychiatric speech Overall: normal quality, quantity, r ate 11/14/2015 None Full Exam - General 1994 Psychiatric thought Overall: normal form and content 11/14/2015 None Full Exam - General 1994 Psychiatric cognition/memory Overall: normal concentration, intelligence 11/14/2015 None Full Exam - General 1994 Psychiatric cognition/memory Overall: immediate, recent, remote memory intact 11/14/2015 None Full Exam - General 1994 Cardiovascular inspection of carotid pulses Overall: strong, bilaterally equal, no bruits 11/14/2015 None Full Exam - General 1994 Eyes pupils and irises Pupil: fixed 11/14/2015 chronic - pt states that he has had dajuan ral surgeries on the eye Full Exam - General 1994 Eyes pupils and irises Pupil: irregular shape 11/14/2015 chronic Full Exam - General 1994 Eyes pupils and irises Pupil: round 11/14/2015 None Full Exam - General 1994 Eyes pupils and irises Pupil: reactive to light 11/14/2015 None Full Exam - General 1994 Eyes pupils and irises Pupil: reactive to accommodation 11/14/2015 None Full Exam - General 1994 Constitutional general appearance Development: well developed 07/14/2015 None Full Exam - General 1994 Constitutional general appearance Development: appears stated age 0407/14/2015 None Full Exam - General 1994 Eyes conjunctiva/eyelids Overall: conjunctiva clear 07/14/2015 None Full Exam - General 1994 Eyes conjunctiva/eyelids Overall: cornea clear 07/14/2015 None Full Exam - General 1994 Eyes conjunctiva/eyelids Overall: eyelids normal 07/14/2015 None Full Exam - General 1994 Respiratory auscultation Overall: breath sounds clear bilaterally 07/14/2015 None Full Exam - General 1994 Respiratory respiratory effort/rhythm Overall: no retractions 07/14/2015 None Full Exam - General 1994 Respiratory respiratory effort/rhythm Overall: normal rate 07/14/2015 None Full Exam - General 1994 Cardiovascular auscultation of heart Overall: regular rate 07/14/2015 None Full Exam - General 1994 Cardiovascular auscultation of heart Overall: normal heart sounds 07/14/2015 None Full Exam - General 1994 Abdomen abdominal exam Overall: no tenderness 07/14/2015 None Full Exam - General 1994 Abdomen abdominal exam Overall: normal bowel sounds 07/14/2015 None Full Exam - General 1994 Neurologic cranial nerves Overall: crainial nerves 2 - 12 grossly intact 07/14/2015 None Full Exam - General 1994 Psychiatric orientation/consciousness Overall: oriented to person, place and time 07/14/2015 None Full Exam - General 1994 Psychiatric mood and affect Overall: normal mood and affect 07/14/2015 None Full Exam - General 1994 Psychiatric appearance Overall: well-groomed, good eye contact 07/14/2015 None Full Exam - General 1994 Ears/Nose/Throat lips/teeth/gingiva Overall: benign lips 07/14/2015 None Full Exam - General 1994 Ears/Nose/Throat oral cavity/pharynx/larynx Overall: oral mucosa clear 07/14/2015 None Full Exam - General 1994 Musculoskeletal gait and station Overall: normal gait 07/14/2015 None Full Exam - General 1994 Musculoskeletal gait and station Overall: normal station 07/14/2015 None Full Exam - General 1994 Integument inspection of skin Overall: no rash, lesions 07/14/2015 None Full Exam - General 1994 Psychiatric orientation/consciousness Overall: oriented to person, place and time 09/20/2014 None Full Exam - General 1994 Psychiatric mood and affect Overall: normal mood and affect 09/20/2014 None Full Exam - General 1994 Psychiatric appearance Overall: well-groomed, good eye contact 09/20/2014 None Full Exam - General 1994 Neurologic deep tendon reflexes Overall: deep tendon reflexes intact 09/20/2014 None Full Exam - General 1994 Neurologic cranial nerves Overall: crainial nerves 2 - 12 grossly intact 09/20/2014 None Full Exam - General 1994 Integument inspection of skin Overall: few scattered moles, no gross abnormalities 09/20/2014 None Full Exam - General 1994 Musculoskeletal digits and nails Nails: a normal exam 09/20/2014 None Full Exam - General 1994 Lymphatic neck nodes Overall: anterior cervical chain benign 09/20/2014 None Full Exam - General 1994 Lymphatic neck nodes Overall: posterior cervical chain benign 09/20/2014 None Full Exam - General 1994 Abdomen abdominal exam Overall: no tenderness 09/20/2014 None Full Exam - General 1994 Abdomen abdominal exam Overall: normal bowel sounds 09/20/2014 None Full Exam - General 1994 Cardiovascular auscultation of heart Overall: regular rate 09/20/2014 None Full Exam - General 1994 Cardiovascular auscultation of heart Overall: normal heart sounds 09/20/2014 None Full Exam - General 1994 Cardiovascular auscultation of heart Overall: no murmurs 09/20/2014 None Full Exam - General 1994 Cardiovascular extremities Overall: no clubbing 09/20/2014 None Full Exam - General 1994 Cardiovascular inspection of pedal pulses Dorsalis pedis: a normal exam 09/20/2014 None Full Exam - General 1994 Respiratory respiratory effort/rhythm Overall: no retractions 09/20/2014 None Full Exam - General 1994 Respiratory respiratory effort/rhythm Overall: normal rate 09/20/2014 None Full Exam - General 1994 Respiratory auscultation Overall: breath sounds clear bilaterally 09/20/2014 None Full Exam - General 1994 Neck inspection of neck Overall: normal size 09/20/2014 None Full Exam - General 1994 Neck inspection of neck Overall: normal appearance 09/20/2014 None Full Exam - General 1994 Ears/Nose/Throat otoscopic exam Overall: external auditory canals clear 09/20/2014 None Full Exam - General 1994 Ears/Nose/Throat otoscopic exam Overall: tympanic membranes clear 09/20/2014 None Full Exam - General 1994 Constitutional general appearance Development: well developed 09/20/2014 None Full Exam - General 1994 Constitutional general appearance Development: appears stated age 0609/20/2014 None Full Exam - General 1994 Eyes conjunctiva/eyelids Overall: conjunctiva clear 09/20/2014 None Full Exam - General 1994 Eyes conjunctiva/eyelids Overall: cornea clear 09/20/2014 None Full Exam - General 1994 Eyes conjunctiva/eyelids Overall: eyelids normal 09/20/2014 None Procedures Procedure Codes Date PPPS, SUBSEQ VISIT CPT- 4: G0439 12/12/2016 TENIVAC TD VACCINE N O PRSRV 7/> IM CPT-4: 85134 09/05/2015 IMMUNIZATION ADMIN CPT- 4: 82540 09/05/2015 URINALYSIS NONAUTO W /O SCOPE CPT-4: 46006 10/03/2014 Vital Signs Date Vital 02/05/2018 Blood Pressure 1: 120/66 Code: 8480-6 BMI: 31.1 Code: 23492-8 Heart Rate 1: 55 bpm Height: 5'11" SpO2: 95% Weight: 223 lbs 12/12/2016 BMI: 29.8 Code: 57195-4 Height: 5'11" Weight: 214 lbs 11/12/2016 Blood Pressure 1: 118/74 Code: 8480-6 BMI: 29.8 Code: 23015-3 Heart Rate 1: 57 bpm Height: 5'11" SpO2: 94% Weight: 214 lbs 11/14/2015 Blood Pressure 1: 110/60 Code: 8480-6 BMI: 29.8 Code: 81124-9 Heart Rate 1: 60 bpm Height: 5'11" SpO2: 96% Weight: 214 lbs 07/14/2015 Blood Pressure 1: 110/64 Code: 8480-6 BMI: 30.1 Code: 62279-9 Heart Rate 1: 55 bpm Height: 5'11" SpO2: 94% Weight: 216 lbs 09/20/2014 Blood Pressure 1: 156/86 Code: 8480-6 BMI: 29.0 Code: 10105-5 Heart Rate 1: 60 bpm Height: 5'11" Respiratory Rate: 20 bpm Weight: 208 lbs Functional Status No Functional Status data History of Present Illness Symptom Name Status Resu lt Effective Date Notes hypertension Onset and Resolution ongoing 02/05/2018 None hypertension Onset of Symptom during adulthood 02/05/2018 None hypertension Pertinent Findings Denies dizziness 02/05/2018 None hypertension Pertinent Findings Denies dyspnea 02/05/2018 None hypertension Pertinent Findings edema 02/05/2018 in his feet intermittentl y hyperlipidemia Onset of Symptom during adulthood 02/05/2018 None hypertension Quality alex abner hypertension 02/05/2018 None hyperlipidemia Onset and Resolution gradual in onset 02/05/2018 None hyperlipidemia Alleviating Factors medication 02/05/2018 None hyperlipidemia Exacerbating Factors diet 02/05/2018 None hyperlipidemia Significant Medications statin 02/05/2018 None hypertension Alleviating Factors medication 02/05/2018 None hypertension Blood Pressure Values patient checking blood pressure at home - did not bring in readings 02/05/2018 None hypertension Quality sta ble 02/05/2018 None hypertension Quality chr onic 02/05/2018 None hypertension Frequency of Episodes unchanged 02/05/2018 None hypertension Triggers no known associated factors 02/05/2018 None Annual Medicare Wellness Exam Aspirin Use yes 12/12/2016 81 Annual Medicare Wellness Exam Blood Glucose (self reported) desireable (below 100) 12/12/2016 None Annual Medicare Wellness Exam Blood Pressure (self reported) high (140/90 or higher) 12/12/2016 None Annual Medicare Wellness Exam Choles terol (self reported) desireable (below 200) 12/12/2016 None Annual Medicare Wellness Exam Depres nohelia (last 6 months) almost never 12/12/2016 None Annual Medicare Wellness Exam Depres nohelia or Hopelessness almost never 12/12/2016 None Annual Medicare Wellness Exam Descri be Your Health good 12/12/2016 None Annual Medicare Wellness Exam Exerci se Habits exercises at work days per week 12/12/2016 None Annual Medicare Wellness Exam Handli ng Stress usually anna effectively 12/12/2016 None Annual Medicare Wellness Exam Hemagl obin A-1C (self reported) don't know 12/12/2016 No ne Annual Medicare Wellness Exam Hours of Sleep 8 12/12/2016 None Annual Medicare Wellness Exam Intera ction with Friends yes 12/12/2016 None Annual Medicare Wellness Exam Intere sts & Pleasure almost never 12/12/2016 None Annual Medicare Wellness Exam Life S atisfaction dissatisfied 12/12/2016 None Annual Medicare Wellness Exam Motor Vehicle Safety always fastens seat belt: y 12/13/19 17 None Annual Medicare Wellness Exam Nutrition servings of vegetables / fruit per day: 1 12/12/2016 None Annual Medicare Wellness Exam Smokin g and Tobacco Use non smoker 12/12/2016 No ne Annual Medicare Wellness Exam Social & Emotional Support sometimes 12/12/2016 Non e Annual Medicare Wellness Exam Stress most of the time 12/12/2016 None Annual Medicare Wellness Exam Sun Exposure protects skin when outdoors: n 12/12/2016 None Annual Medicare Wellness Exam Alcohol Use occasional alcohol intake 12/12/2016 None hypertension Quality chr onic 11/12/2016 None hypertension Onset and Resolution ongoing 11/12/2016 None hypertension Onset of Symptom during adulthood 11/12/2016 None hypertension Blood Pressure Values pt checking blood pressure - see scanned document 11/12/2016 None hypertension Pertinent Findings Denies decreased energy 11/12/2016 None hypertension Pertinent Findings Denies dizziness 11/12/2016 None hypertension Pertinent Findings edema 11/12/2016 None hypertension Pertinent Findings Denies dyspnea 11/12/2016 None hypertension Pertinent Findings muscle weakness 11/12/2016 None hyperlipidemia Onset of Symptom during adulthood 11/12/2016 None hyperlipidemia Onset and Resolution ongoing 11/12/2016 None hyperlipidemia Quality c hronic 11/12/2016 None hyperlipidemia Pertinent Findings edema 11/12/2016 None dyspepsia Quality acute 11/12/2016 None dyspepsia Quality aching 11/12/2016 None dyspepsia Quality heartb urn 11/12/2016 None dyspepsia Onset and Resolution sudden in onset 11/12/2016 None dyspepsia Pertinent Findings Denies decreased energy level 11/12/2016 None dyspepsia Pertinent Findings Denies dyspnea 11/12/2016 None dyspepsia Pertinent Findings edema 11/12/2016 None dyspepsia Pertinent Findings heartburn 11/12/2016 None dyspepsia Pertinent Findings nausea 11/12/2016 None vertigo Onset and Resolution sudden in onset 11/14/2015 None vertigo Onset of Symptom 4 hours ago 11/14/2015 None vertigo Triggers no know n associated factors 11/14/2015 None vertigo Pertinent Findings dizziness 11/14/2015 None vertigo Pertinent Findings lightheadedness 11/14/2015 None anemia Quality acute 07/14/2015 None anemia Onset and Resolution gradual in onset 07/14/2015 None anemia Triggers no known associated factors 07/14/2015 None anemia Pertinent Findings decreased energy 07/14/2015 None anemia Pertinent Findings Denies fever 07/14/2015 None anemia Pertinent Findings Denies dyspnea 07/14/2015 None Hospital Follow Up _ car diac disease 09/20/2014 None Hospital Follow Up Quality chronic illness 09/20/2014 None Hospital Follow Up Location diffusely 09/20/2014 None Hospital Follow Up Onset and Resolution ongoing 09/20/2014 None Hospital Follow Up Severity moderate 09/20/2014 None Hospital Follow Up Alleviating Factors rest 09/20/2014 None Hospital Follow Up Exacerbating Factors medication 09/20/2014 None near-syncope/dizziness Quality improving 09/20/2014 None near-syncope/dizziness Quality intermittent 09/20/2014 None near-syncope/dizziness Quality lightheadedness 09/20/2014 None near-syncope/dizziness Onset and Resolutio n ongoing 09/20/2014 None near-syncope/dizziness Limitation on Activities moderately limits activities 09/20/2014 None Advance Directives No Advance Directive data Encounters Encounter Performer Loca tion Codes Date ( [id number] EST. P ATIENT, LEVEL III Diagnosis: Essential (primary) hypertension[ICD10: I10] Diagnosis: Mixed hyperlipidemia[ICD10: E78.2] Nellie Orlando MD, [facility] CPT-4: 28739 02/05/2018 ([id number]) [id number] EST. 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 PATIENT, LEVEL III Diagnosis: Dizziness and giddiness[ICD10: R42] Felicita Orlando MD, [facility] CPT-4: 03903 11/14/2015 [id number] EST. PATIENT, LEVEL IV Diagnosis: Other iron deficiency anemias[ICD10: D50.8] Felicita Orlando MD, [facility] CPT-4: 20749 07/14/2015 ([id number]) [id number] EST. [facility], L[facility] Diagnosis: Hospital discharge follow-up[ICD9: V67.59] Diagnosis: Syncope[ICD9: 780.2] Diagnosis: ORTHOSTATIC HYPOTENSION[ICD9: 458.0] Jesusita Orlando MD, [facility] CPT-4: 88434 09/20/2014 Plan of Care Planned Activity Notes C odes Status Date Visit Plan: Hypertension - well con trolled - continue with current medications, continue with no added salt diet. Pt has been encouraged to exercise daily. The pt has been advised to call the office if there are any acute concerns about change in blood pressure readings at home. Hyperlipidemia - pt has been counseled about appropriate diet, exercise, and need for low fat food choices. I have discussed the need for the patient to take medications as prescribed. If the patient has negative side effects from the medication, they are to CALL the office and not abruptly discontinue the medication without discussion with a practitioner in the office. We will check labs in 3-6 months for follow up on the patient's chronic medical problem and to assure normal liver response to medications. 02/05/2018 Appointment: Nellie Caro WPtel: [phone] [id number] (15 min) Moderate 02/05/2018 Patient Education: Patient Medication Summary Completed 02/05/2018 Patient Education: Hypertension Completed 02/05/2018 Patient Education: Cholesterol Management Completed 02/05/2018 Care Plan: Cbc With Differential Pending 02/05/2018 Care Plan: Comp Metabolic Pending 02/05/2018 Care Plan: Lipid Pending 02/05/2018 Visit Plan: Medicare Exam - today w e discussed the patients past history, immunizations, preventative exams/evaluations - colonoscopy, fecal occult blood testing, routine labs for renal function, glucose, cholesterol, osteoporosis evaluations, cardiovascular testing and cancer screenings. We have also discussed mental health and the signs/symptoms of depression. The patient was advised of home safety evaluations and the need to make sure that as the aging process continues, we need to be aware of different ways to make the home a safer place to reside. The patient has also been counseled that exercise is necessary - and of utmost importance as we age to help decrease fall risk and to maintain independece in the home. Today we discussed the need for the patient to create paperwork for Advanced directives as well as for the patient to provide this office with a copy of her DOPA paperwork for health care surrogate. 12/12/2016 Appointment: Felicita Jeffrey WPtel: [facility] [facility] - Annual Wellness Visit 12/12/2016 Patient Education: Patient Medication Summary Completed 12/12/2016 Visit Plan: Hypertension - well con trolled - continue with current medications, continue with no added salt diet. Pt has been encouraged to exercise daily. The pt has been advised to call the office if there are any acute concerns about change in blood pressure readings at home. Hyperlipidemia - pt has been counseled about appropriate diet, exercise, and need for low fat food choices. I have discussed the need for the patient to take medications as prescribed. If the patient has negative side effects from the medication, they are to CALL the office and not abruptly discontinue the medication without discussion with a practitioner in the office. We will check labs in 3-6 months for follow up on the patient's chronic medical problem and to assure normal liver response to medications. Iron def anemia-check labs GERD-symptoms uncontrolled, history of h.pyloir-also due for colonoscopy-refer to Dr Lynch for evaluation 11/12/2016 Appointment: Nellie Caro WPtel: [phone] [id number] (15 min) Moderate 11/12/2016 Patient Education: Patient Medication Summary Completed 11/12/2016 Care Plan: Comp Metabolic Pending 11/12/2016 Care Plan: Cbc With Differential Pending 11/12/2016 Care Plan: Tsh Pending 11/12/2016 Care Plan: Lipid Pending 11/12/2016 Care Plan: Total Psa Pending 11/12/2016 Care Plan: Referral Order SNOMED-CT : [id number] Pending 11/12/2016 Visit Plan: Pt states that he had a moment of dizziness and feeling light headed. Pt states that it lasted a minute or so. Pt denies loosing strength, and states that it just felt like his equilibrium was "off". Pt states that he went to his office and felt better. States that he had a cardiac stress test and appointment with his hand stemmer not that long ago. Pt has normal facial expressions, normal strength in all extremities. Will check labs, pt is to notify his hand stemmer. Pt is to notify clinic if symptoms return, or with any concerns. 11/14/2015 Appointment: Nellie Caro WPtel: [phone] [phone] (30 min) Complex 11/14/2015 Patient Education: Patient Medication Summary Completed 11/14/2015 Appointment: Injection 09/05/2015 Patient Education: Patient Medication Summary Completed 09/05/2015 Visit Plan: Anemia - occult stools negative, will check labs, will order iron infusion if indicated. Pt is to notify clinic with any questions or concerns. 07/14/2015 Visit Plan: Anemia - occult stools negative, will check labs, will order iron infusion if indicated. Pt is to notify clinic with any questions or concerns. 07/14/2015 Appointment: (15 min) Moderate 07/14/2015 Patient Education: Patient Medication Summary Completed 07/14/2015 Appointment: (30 min) Complex 10/04/2014 Appointment: Lab Draw 10/03/2014 Patient Education: Patient Medication Summary Completed 10/03/2014 Visit Plan: Hospital follow up - Th is was a follow up appointment from the patient's hospitalization during which time Dr. Orlando formulated the assessment and plan for the follow up on this patient's medical condition. Syncope- Continue to check blood pressure at home. If blood pressure below 90/50, hold metoprolol until appointment with Horologist Apprentice on 09/26. 09/20/2014 Appointment: (30 min) Complex 09/20/2014 Patient Education: Patient Medication Summary Completed 09/20/2014 Referral: Gerry Lynch [address] [facility] Referral Appointment Requested Instructions Comment REFER TO DR LYNCH CHECK LABS TODAY . Hypertension - well controlled - kwame nue with current medications, continue with no added salt diet. Pt has been encouraged to exercise daily. The pt has been advised to call the office if there are any acute concerns about change in blood pressure readings at home. Hyperlipidemia - pt has been counseled about appropriate diet, exercise, and need for low fat food choices. I have discussed the need for the patient to take medications as prescribed. If the patient has negative side effects from the medication, they are to CALL the office and not abruptly discontinue the medication without discussion with a practitioner in the office. We will check labs in 3-6 months for follow up on the patient's chronic medical problem and to assure normal liver response to medications. Iron def anemia-check labs GERD-symptoms uncontrolled, history of h.pyloir-also due for colonoscopy-refer to Dr Lynch for evaluation . Anemia - occult st ools negative, will check labs, will order iron infusion if indicated. Pt is to notify clinic with any questions or concerns. . Anemia - occult st ools negative, will check labs, will order iron infusion if indicated. Pt is to notify clinic with any questions or concerns. . Medicare Exam - to day we discussed the patients past history, immunizations, preventative exams/evaluations - colonoscopy, fecal occult blood testing, routine labs for renal function, glucose, cholesterol, osteoporosis evaluations, cardiovascular testing and cancer screenings. We have also discussed mental health and the signs/symptoms of depression. The patient was advised of home safety evaluations and the need to make sure that as the aging process continues, we need to be aware of different ways to make the home a safer place to reside. The patient has also been counseled that exercise is necessary - and of utmost importance as we age to help decrease fall risk and to maintain independece in the home. Today we discussed the need for the patient to create paperwork for Advanced directives as well as for the patient to provide this office with a copy of her DOPA paperwork for health care surrogate. . Pt states that he had a moment of dizziness and feeling light headed. Pt states that it lasted a minute or so. Pt denies loosing strength, and states that it just felt like his equilibrium was "off". Pt states that he went to his office and felt better. States that he had a cardiac stress test and appointment with his hand stemmer not that long ago. Pt has normal facial expressions, normal strength in all extremities. Will check labs, pt is to notify his hand stemmer. Pt is to notify clinic if symptoms return, or with any concerns. . Hypertension - wel l controlled - continue with current medications, continue with no added salt diet. Pt has been encouraged to exercise daily. The pt has been advised to call the office if there are any acute concerns about change in blood pressure readings at home. Hyperlipidemia - pt has been counseled about appropriate diet, exercise, and need for low fat food choices. I have discussed the need for the patient to take medications as prescribed. If the patient has negative side effects from the medication, they are to CALL the office and not abruptly discontinue the medication without discussion with a practitioner in the office. We will check labs in 3-6 months for follow up on the patient's chronic medical problem and to assure normal liver response to medications. Hold metoprolol jose ght. Take blood pressure in the morning. If blood pressure less than 100/60 in the morning, hold losartan. Stay home from work if blood pressure less than 90/50. Call office with a blood pressure report in the morning. . Hospital follow up - This was a follow up appointment from the patient's hospitalization during which time Dr. Orlando formulated the assessment and plan for the follow up on this patient's medical condition. Syncope- Continue to check blood pressure at home. If blood pressure below 90/50, hold metoprolol until appointment with Horologist Apprentice on 09/26.
--- OUTSIDE RECORDS SUMMARY | 2019-10-28 19:09 | XMS REPORT | Continuity of Care Document ---
Author Organization Unknown Address Unknown Phone Unavailable Allergies Active Description Code Type Severity Reaction Onset Reported/Identified Relationship to Patient Clinical Status Yes No Known Drug Allergies [id number] Drug Allergy Unknown N/A 12/29/2009 Medications There is no data. Problems Date Dx Coded Attending Type Code Diagnosis Diagnosed By 03/02/2014 JOSE LAWSON MD Ot 786.2 09/16/2014 SHEBA PAYNE MD Ot 272.0 PURE HYPERCHOLESTEROLEM 09/16/2014 SHEBA PAYNE MD Ot 276.51 DEHYDRATION 09/16/2014 SHEBA PAYNE MD Ot 280.0 CHR BLOOD LOSS ANEMIA 09/16/2014 SHEBA PAYNE MD Ot 401.9 HYPERTENSION NOS 09/16/2014 SHEBA PAYNE MD Ot 412 OLD MYOCARDIAL INFARCT 09/16/2014 SHEBA PAYNE MD Ot 458.9 HYPOTENSION NOS 09/16/2014 SHEBA PAYNE MD Ot 530.11 REFLUX ESOPHAGITIS 09/16/2014 SHEBA PAYNE MD Ot 535.40 OTH SPECIFIED GASTRITIS,W/O MENTION OF H 09/16/2014 SHEBA PAYNE MD Ot 535.50 UNSP GASTRITIS GASTRODUODENITIS W/O ME 09/16/2014 SHEBA PAYNE MD Ot 553.3 DIAPHRAGMATIC HERNIA 09/16/2014 SHEBA PAYNE MD Ot 584.9 ACUTE RENAL FAILURE, UNSPECIFIED 09/16/2014 SHEBA PAYNE MD Ot 600.00 HYPERTROPHY (BENIGN) OF PROSTATE W/O URI 09/16/2014 SHEBA PAYNE MD Ot 780.2 SYNCOPE AND COLLAPSE 09/16/2014 SHEBA PAYNE MD Ot V58.69 OTH MED,LT,CURRENT USE 10/26/2014 NELLIE CARO SHEEP SORTER Ot 789.09 07/26/2015 MIGUEL MIRANDA MD Ot D50.9 IRON DEFICIENCY ANEMIA, UNSPECIFIED 07/28/2015 MIGUEL MIRANDA MD Ot D50.9 IRON DEFICIENCY ANEMIA, UNSPECIFIED 07/31/2015 RUTH APARICIO, MIGUEL Bazan Ot D50.9 IRON DEFICIENCY ANEMIA, UNSPECIFIED 08/02/2015 RUTH APARICIO, MIGUEL Bazan Ot D50.9 IRON DEFICIENCY ANEMIA, UNSPECIFIED 08/02/2015 RUTH APARICIO, MIGUEL Bazan Ot D50.9 IRON DEFICIENCY ANEMIA, UNSPECIFIED 09/08/2015 NELLIE CARO SHEEP SORTER Ot I51.7 CARDIOMEGALY 09/08/2015 NELLIE CARO SHEEP SORTER Ot R07.81 PLEURODYNIA 09/30/2015 NELLIE CARO SHEEP SORTER Ot I51.7 CARDIOMEGALY 09/30/2015 NELLIE CARO SHEEP SORTER Ot R07.81 PLEURODYNIA 08/27/2018 SHEBA PAYNE MD Ot Z01.81 8 ENCOUNTER FOR OTHER PREPROCEDURAL EXAMIN 08/28/2018 SHEBA PAYNE MD, Ot Z01.81 8 ENCOUNTER FOR OTHER PREPROCEDURAL EXAMIN 09/01/2018 RENNY APARICIO, JOSE M Ot 786.2 COUGH 09/01/2018 NELLIE CARO SHEEP SORTER Ot 789.09 ABDOMINAL PAIN, OTHER SPECIFIED SITE 09/01/2018 NELLIE CARO SHEEP SORTER Ot I51.7 CARDIOMEGALY 09/01/2018 NELLIE CARO SHEEP SORTER Ot R07.81 PLEURODYNIA 09/02/2018 SHEBA PAYNE MD, Ot 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 09/02/2018 SHEBA PAYNE MD, Ot I10 ESSENTIAL (PRIMARY) HYPERTENSION 09/02/2018 SHEBA PAYNE MD, Ot I25.10 ATHSCL HEART DISEASE OF [place] CORONARY 09/02/2018 SHEBA PAYNE MD, Ot I25.2 OLD MYOCARDIAL INFARCTION 09/02/2018 SHEBA PAYNE MD, Ot K21.0 GASTRO-ESOPHAGEAL REFLUX DISEASE WITH ES 09/02/2018 SHEBA PAYNE MD, Ot K29.70 GASTRITIS, UNSPECIFIED, WITHOUT BLEEDING 09/02/2018 SHEBA PAYNE MD, Ot K44.9 DIAPHRAGMATIC HERNIA WITHOUT OBSTRUCTION 09/02/2018 SHEBA PAYNE MD, Ot K57.30 DVRTCLOS OF LG INT W/O PERFORATION OR AB 09/02/2018 SHEBA PAYNE MD, Ot K64.1 SECOND DEGREE HEMORRHOIDS 09/02/2018 SHEBA PAYNE MD, Ot M10.9 GOUT, UNSPECIFIED 09/02/2018 SHEBA PAYNE MD, Ot N40.0 BENIGN PROSTATIC HYPERPLASIA WITHOUT LOW 09/02/2018 SHEBA PAYNE MD, Ot Z12.11 ENCOUNTER FOR SCREENING FOR MALIGNANT NE 09/02/2018 SHEBA PAYNE MD, Ot Z79.82 SUPERVISOR CIGAR PROCESSING (CURRENT) USE OF ASPIRIN 09/02/2018 SHEBA PAYNE MD, Ot Z79.89 9 OTHER SUPERVISOR CIGAR PROCESSING (CURRENT) DRUG THERAPY 09/02/2018 SHEBA PAYNE MD, Ot Z80.0 FAMILY HISTORY OF MALIGNANT NEOPLASM OF 09/02/2018 SHEBA PAYNE MD, Ot Z85.82 8 PERSONAL HISTORY OF OTHER MALIGNANT NEOP 09/02/2018 SHEBA PAYNE MD, Ot Z86.73 PRSNL HX OF TIA (TIA), AND CEREB INFRC W 09/02/2018 SHEBA PAYNE MD, Ot Z88.5 ALLERGY STATUS TO NARCOTIC AGENT STATUS 09/02/2018 SHEBA PAYNE MD, Ot Z95.5 PRESENCE OF CORONARY ANGIOPLASTY IMPLANT 09/03/2018 SHEBA PAYNE MD, Ot 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 09/03/2018 SHEBA PAYNE MD, Ot I10 ESSENTIAL (PRIMARY) HYPERTENSION 09/03/2018 SHEBA PAYNE MD, Ot I25.10 ATHSCL HEART DISEASE OF [place] CORONARY 09/03/2018 SHEBA PAYNE MD, Ot I25.2 OLD MYOCARDIAL INFARCTION 09/03/2018 SHEBA PAYNE MD, Ot K21.0 GASTRO-ESOPHAGEAL REFLUX DISEASE WITH ES 09/03/2018 SHEBA PAYNE MD, Ot K29.70 GASTRITIS, UNSPECIFIED, WITHOUT BLEEDING 09/03/2018 SHEBA PAYNE MD, Ot K44.9 DIAPHRAGMATIC HERNIA WITHOUT OBSTRUCTION 09/03/2018 SHEBA PAYNE MD, Ot K57.30 DVRTCLOS OF LG INT W/O PERFORATION OR AB 09/03/2018 SHEBA PAYNE MD, Ot K64.1 SECOND DEGREE HEMORRHOIDS 09/03/2018 SHEBA PAYNE MD, Ot M10.9 GOUT, UNSPECIFIED 09/03/2018 SHEBA PAYNE MD, Ot N40.0 BENIGN PROSTATIC HYPERPLASIA WITHOUT LOW 09/03/2018 SHEBA PAYNE MD, Ot Z12.11 ENCOUNTER FOR SCREENING FOR MALIGNANT NE 09/03/2018 SHEBA PAYNE MD, Ot Z79.82 USP (CURRENT) USE OF ASPIRIN 09/03/2018 SHEBA PAYNE MD, Ot Z79.89 9 OTHER USP (CURRENT) DRUG THERAPY 09/03/2018 SHEBA PAYNE MD, Ot Z80.0 FAMILY HISTORY OF MALIGNANT NEOPLASM OF 09/03/2018 SHEBA PAYNE MD, Ot Z85.82 8 PERSONAL HISTORY OF OTHER MALIGNANT NEOP 09/03/2018 SHEBA PAYNE MD, Ot Z86.73 PRSNL HX OF TIA (TIA), AND CEREB INFRC W 09/03/2018 SHEBA PAYNE MD, Ot Z88.5 ALLERGY STATUS TO NARCOTIC AGENT STATUS 09/03/2018 SHEBA PAYNE MD, Ot Z95.5 PRESENCE OF CORONARY ANGIOPLASTY IMPLANT 09/03/2018 SHEBA PAYNE MD, Ot 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 09/03/2018 SHEBA PAYNE MD, Ot I10 ESSENTIAL (PRIMARY) HYPERTENSION 09/03/2018 SHEBA PAYNE MD, Ot I25.10 ATHSCL HEART DISEASE OF [place] CORONARY 09/03/2018 SHEBA PAYNE MD, Ot I25.2 OLD MYOCARDIAL INFARCTION 09/03/2018 SHEBA PAYNE MD, Ot K21.0 GASTRO-ESOPHAGEAL REFLUX DISEASE WITH ES 09/03/2018 SHEBA PAYNE MD, Ot K29.70 GASTRITIS, UNSPECIFIED, WITHOUT BLEEDING 09/03/2018 SHEBA PAYNE MD, Ot K44.9 DIAPHRAGMATIC HERNIA WITHOUT OBSTRUCTION 09/03/2018 SHEBA PAYNE MD, Ot K57.30 DVRTCLOS OF LG INT W/O PERFORATION OR AB 09/03/2018 SHEBA PAYNE MD, Ot K64.1 SECOND DEGREE HEMORRHOIDS 09/03/2018 SHEBA PAYNE MD, Ot M10.9 GOUT, UNSPECIFIED 09/03/2018 SHEBA PAYNE MD, Ot N40.0 BENIGN PROSTATIC HYPERPLASIA WITHOUT LOW 09/03/2018 SHEBA PAYNE MD, Ot Z12.11 ENCOUNTER FOR SCREENING FOR MALIGNANT NE 09/03/2018 SHEBA PAYNE MD, Ot Z79.82 SUPERVISOR CIGAR PROCESSING (CURRENT) USE OF ASPIRIN 09/03/2018 SHEBA PAYNE MD, Ot Z79.89 9 OTHER SUPERVISOR CIGAR PROCESSING (CURRENT) DRUG THERAPY 09/03/2018 SHEBA PAYNE MD, Ot Z80.0 FAMILY HISTORY OF MALIGNANT NEOPLASM OF 09/03/2018 SHEBA PAYNE MD, Ot Z85.82 8 PERSONAL HISTORY OF OTHER MALIGNANT NEOP 09/03/2018 SHEBA PAYNE MD, Ot Z86.73 PRSNL HX OF TIA (TIA), AND CEREB INFRC W 09/03/2018 SHEBA PAYNE MD, Ot Z88.5 ALLERGY STATUS TO NARCOTIC AGENT STATUS 09/03/2018 SHEBA PAYNE MD, Ot Z95.5 PRESENCE OF CORONARY ANGIOPLASTY IMPLANT 09/08/2018 SHEBA PAYNE MD, Ot 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 09/08/2018 SHEBA PAYNE MD, Ot I10 ESSENTIAL (PRIMARY) HYPERTENSION 09/08/2018 SHEBA PAYNE MD, Ot I25.10 ATHSCL HEART DISEASE OF [place] CORONARY 09/08/2018 SHEBA PAYNE MD, Ot I25.2 OLD MYOCARDIAL INFARCTION 09/08/2018 SHEBA PAYNE MD, Ot K21.0 GASTRO-ESOPHAGEAL REFLUX DISEASE WITH ES 09/08/2018 SHEBA PAYNE MD, Ot K29.70 GASTRITIS, UNSPECIFIED, WITHOUT BLEEDING 09/08/2018 SHEBA PAYNE MD, Ot K44.9 DIAPHRAGMATIC HERNIA WITHOUT OBSTRUCTION 09/08/2018 SHEBA PAYNE MD, Ot K57.30 DVRTCLOS OF LG INT W/O PERFORATION OR AB 09/08/2018 SHEBA PAYNE MD, Ot K64.1 SECOND DEGREE HEMORRHOIDS 09/08/2018 SHEBA PAYNE MD, Ot M10.9 GOUT, UNSPECIFIED 09/08/2018 SHEBA PAYNE MD, Ot N40.0 BENIGN PROSTATIC HYPERPLASIA WITHOUT LOW 09/08/2018 SHEBA PAYNE MD, Ot Z12.11 ENCOUNTER FOR SCREENING FOR MALIGNANT NE 09/08/2018 SHEBA PAYNE MD, Ot Z79.82 SUPERVISOR CIGAR PROCESSING (CURRENT) USE OF ASPIRIN 09/08/2018 SHEBA PAYNE MD, Ot Z79.89 9 OTHER SUPERVISOR CIGAR PROCESSING (CURRENT) DRUG THERAPY 09/08/2018 SHEBA PAYNE MD, Ot Z80.0 FAMILY HISTORY OF MALIGNANT NEOPLASM OF 09/08/2018 SHEBA PAYNE MD, Ot Z85.82 8 PERSONAL HISTORY OF OTHER MALIGNANT NEOP 09/08/2018 SHEBA PAYNE MD, Ot Z86.73 PRSNL HX OF TIA (TIA), AND CEREB INFRC W 09/08/2018 SHEBA PAYNE MD, Ot Z88.5 ALLERGY STATUS TO NARCOTIC AGENT STATUS 09/08/2018 SHEBA PAYNE MD, Ot Z95.5 PRESENCE OF CORONARY ANGIOPLASTY IMPLANT 06/04/2019 W J20.9 Acut e bronchitis Nellie Caro 06/04/2019 W R05 Cough Nellie Caro 06/08/2019 W D50.8 Othe r iron deficiency anemias Nellie Caro 06/08/2019 W J30.89 Oth er allergic rhinitis Nellie Caro 06/08/2019 W R05 Cough Nellie Caro 06/11/2019 W D50.8 Othe r iron deficiency anemias Nellie Caro 06/11/2019 W J30.89 Oth er allergic rhinitis Nellie Caro 06/11/2019 W R05 Cough [place], Nellie 08/09/2019 W I10 Essent ial (primary) hypertension Nellie Caro 08/09/2019 W K57.31 Div erticulosis large intestine w/o perforation or abscess w/bleeding Nellie Caro 08/09/2019 W M54.6 Thor acic back pain Nellie Caro 08/09/2019 W M62.830 Mu scle spasm of back Nellie Caro 08/09/2019 W I10 Essent ial (primary) hypertension Nellie Caro 08/09/2019 W K57.31 Div erticulosis large intestine w/o perforation or abscess w/bleeding Nellie Caro 08/09/2019 W M54.6 Thor acic back pain Nellie Caro 08/09/2019 W M62.830 Mu scle spasm of back Nellie Caro Procedures There is no data. Results There is no data. Encounters ACCT No. Visit Date/Time Discharge Status Pt. Type Provider Facility Loc./Unit Complaint [id number] 02/13/2017 09:56:05 02/13/2017 23:59:5 9 CLS Outpatient [id number] 09/02/2018 12:01:00 019 15:30:00 DIS Outpatient SHEBA PAYNE MD [facility] ENDO SCREENING [id number] 08/27/2018 05:39:00 019 13:34:00 DIS Outpatient SHEBA PAYNE MD [facility] PREOP COLONOSCOPY [id number] 09/07/2015 10:26:00 016 23:59:59 CLS Outpatient NELLIE CARO [facility] RAD FALL RIB PAIN [id number] 08/02/2015 07:02:00 016 09:10:00 DIS Outpatient MIGUEL MIRANDA MD [facility] ANEMIA, IRON DEFICIENCY [id number] 10/04/2014 13:36:00 015 23:59:59 CLS Outpatient NELLIE CARO [facility] RAD RT FLANK PAIN [id number] 09/15/2014 21:40:00 015 18:56:00 DIS Outpatient SHEBA PAYNE MD [facility] SD SYNCOPE,ORTHOSTATIC ARF ,DEHYDRATION [id number] 01/31/2014 14:19:00 014 23:59:59 CLS Outpatient JOSE LAWSON MD [facility] RAD COUGH [id number] 10/13/2012 08:22:00 013 23:59:59 CLS Outpatient [id number] 10/12/2012 09:50:00 013 23:59:59 CLS Outpatient
== END 2019-10-28 19:08 | disposition home or self-care (01) ==
LOC: EDUNIT# 16:12 → ER 16:14
DX: N17.9 Acute kidney failure, unspecified (principal); T67.9XXA Effect of heat and light, unspecified, initial encounter; E86.0 Dehydration; I25.10 Atherosclerotic heart disease of native coronary artery without angina pectoris; I10 Essential (primary) hypertension; I25.2 Old myocardial infarction; E78.00 Pure hypercholesterolemia, unspecified; N40.0 Benign prostatic hyperplasia without lower urinary tract symptoms; M10.9 Gout, unspecified; Z80.0 Family history of malignant neoplasm of digestive organs; Z82.49 Family history of ischemic heart disease and other diseases of the circulatory system; Z79.82 Long term (current) use of aspirin; Z95.5 Presence of coronary angioplasty implant and graft; Z86.73 Personal history of transient ischemic attack (TIA), and cerebral infarction without residual deficits
CPT/HCPCS: 36415; 71045; 80053; 81000; 82550; 83880; 84443; 84484; 85007; 85027; 93005; 96361; 96374

== ENCOUNTER → 2020-01-07 | Outpatient (CLI) | payer MEDICARE ==
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
== END ==
LOC: RAD 14:12
PROVIDERS: ATTEND Family Medicine
DX: R07.81 Pleurodynia (principal); V89.2XXA Person injured in unspecified motor-vehicle accident, traffic, initial encounter
CPT/HCPCS: 71046

== ENCOUNTER 2020-03-16 05:33 | Outpatient (RCR) | payer MEDICARE, OTHER ==
[~2020-03-16] VITALS: Ht 177 cm; Wt 96.8 kg
[~2020-03-16 05:33] MED LIST changes: +AMLO-251 PO; -AMLO10TA7 PO
[2020-03-20] MEDS ORDERED: TRM50T PO (10:54)
== END 2020-03-16 10:11 | disposition home or self-care (01) ==
LOC: PREOP 05:33
PROVIDERS: ATTEND Podiatrist Foot & Ankle Surgery
DX: Z01.812 Encounter for preprocedural laboratory examination (principal); Z20.828 Contact with and (suspected) exposure to other viral communicable diseases
CPT/HCPCS: 87635

== ENCOUNTER 2020-03-20 07:53 | Day surgery (SDC) | payer MEDICARE, OTHER ==
[2020-03-20] VITALS (8 sets, daily range): BP systolic 123–161; BP diastolic 75–82
[~2020-03-20] VITALS: Ht 177 cm; Wt 96.8 kg
[2020-03-20] MEDS ORDERED: BUPIVACAINE 0.5% 30 ML (SENSORCAINE) VIAL ONE (09:01)
[2020-03-20] MEDS ORDERED: LIDOCAINE 1% INJ 20 ML 20 ML VIAL ONE (09:01)
[2020-03-20] MEDS ORDERED: ceFAZolin INJECTION 1,000 MG in WATER (STERILE) FOR INJECTION 10 ML IV ONE (09:30)
[2020-03-20] MEDS ORDERED: CATHETER FLUSH 10 ML SYR IV PRN (09:30)
[2020-03-20] MEDS ORDERED: LACTATED RINGERS 1,000 ML IV PRN (09:30)
[2020-03-20] MEDS ORDERED: PROPOFOL INJECTION 50 ML IV ONE (09:45)
[2020-03-20] MEDS ORDERED: MIDAZOLAM 2 MG/2 ML (VERSED) VIAL ONE (09:45)
[2020-03-20] MEDS ORDERED: ONDANSETRON 4 MG/2 ML (SDV) Z0FRAN ONE (10:29)
--- NOTE | 2020-03-20 10:48 | Progress Note-Pre Operative ---
Pre-Operative Progress Note H&P Reviewed The H&P was reviewed, patient examined and no changes noted. Date Seen by Provider: Mar 20, 2020 Time Seen by Provider: 10:05 Date H&P Reviewed: Mar 20, 2020 Time H&P Reviewed: 10:05 Pre-Operative Diagnosis: Soft Tussue Lesion Right Hallux NAHOMI BRADFORD DPSabino Mar 20, 2020 10:48
--- NOTE | 2020-03-20 10:49 | Progress Note-Post Operative ---
Post-Operative Progess Note Surgeon (s)/Rope Laying Machine Operator (s) Surgeon NAHOMI BRADFORD DPM Rope Laying Machine Operator: none Pre-Operative Diagnosis Soft Tussue Lesion Right Hallux Post-Operative Diagnosis Same Procedure & Operative Findings Date of Procedure 03/20/20 Procedure Performed/Findings Excision of Soft Tissue Lesion Right Hallux Anesthesia Type MAC Estimated Blood Loss Estimated blood loss (mL): Minimal Specimens/Packing Specimens Removed Cyst Right Hallux Packing: None NAHOMI BRADFORD DPM Mar 20, 2020 10:49
[2020-03-20] MEDS ORDERED: TRM50T PO (10:54)
[2020-03-20] MEDS ORDERED: fentaNYL INJECTION 100 MCG/2 ML AMP IVP ONE (11:00)
[2020-03-20] MEDS ORDERED: ONDANSETRON 4 MG/2 ML (SDV) Z0FRAN IVP PRN (11:00)
[2020-03-20] MEDS ORDERED: HYDROcodone/APAP 5 MG/325 MG (LORTAB) TAB PO PRN (11:00)
[2020-03-20] MEDS ORDERED: LACTATED RINGERS 1,000 ML IV SCH (11:00)
[2020-03-20] MEDS ORDERED: MEPERIDINE (DEMEROL) INJ 50 MG/ML IVP ONE (11:00)
--- NOTE | 2020-03-20 12:46 | Anesthesia-General Post-Op ---
MAC Patient Condition Mental Status/LOC: Same as Preop Cardiovascular: Satisfactory Nausea/Vomiting: Absent Respiratory: Satisfactory Pain: Controlled Complications: Absent Post Op Complications Complications None Follow Up Care/Instructions Patient Instructions None needed. Anesthesiology Discharge Order Discharge Order Patient is doing well, no complaints, stable vital signs, no apparent adverse anesthesia problems. No complications reported per nursing. MELISSA KING CRNA Mar 20, 2020 12:46
--- NOTE | 2020-03-20 19:28 | OPERATIVE REPORT ---
DATE OF SERVICE: 03/20/2020 SURGEON: Millicent Bradford DPM PREOPERATIVE DIAGNOSIS: Soft tissue lesion, right hallux. POSTOPERATIVE DIAGNOSIS: Soft tissue lesion, right hallux. PROCEDURE: Excision of soft tissue lesion, right hallux. WOUND CLASS: Clean. ANESTHESIA: Monitored anesthesia care. HEMOSTASIS: Pneumatic ankle tourniquet at 250 mmHg. INDICATIONS: This 80-year-old male presents complaining of a painful soft tissue lesion to the right great toe distal phalanx. Conservative therapy is met with unsatisfactory results and the patient is agreeable after risks and complications were discussed at length. No guarantees were extended to the patient and he is willing to proceed. DESCRIPTION OF PROCEDURE: The patient was brought back to the operative table, placed in secure supine position. Appropriate timeout was performed. A right ankle tourniquet was applied over several layers of padding. The right foot was anesthetized utilizing 8 mL of 1:1 mixture of 1% Xylocaine, 0.5% Marcaine injected in a digital block to the right hallux. The right foot was then prepped and draped in normal sterile manner. The right foot was then elevated, allowed to exsanguinate after which the tourniquet was inflated to 250 mmHg. Attention was then directed to the dorsal aspect of the right hallux nail bed. A previous matrixectomy had been performed and there was no nail present. The incision was longitudinal along the nail plate from the eponychium to the hyponychium area. The soft tissue was gently teased back. after which a clear gelatinous material extruded through the incision. Despite a careful dissection, there was quite a bit of gelatinous material that was well-encapsulated. The gelatinous material and some of the capsule was then sent for gross and microscopic evaluation, but was grossly identified to be a ganglionic cyst. The source of the gelatinous material was noted to be the lateral aspect of the distal phalanx. When palpating and applying pressure to the plantar aspect of the distal phalanx, more gelatinous material extruded through approximately 3 to 4 mm aperture to the lateral aspect of the distal phalanx up into the dorsal aspect of the first digit distal phalanx. This area was flushed with copious amounts of normal saline. Curettage was performed to the lateral aspect of the distal phalanx followed by electrocautery. The area was flushed once again, after which closure was then performed in layers. Deep closure was performed with 4-0 Vicryl and skin closure was performed with 4-0 Prolene in a horizontal mattress type stitch. Postoperative injection consisted of 10 mg of dexamethasone into the nail bed as well as to the plantar aspect of the right hallux. Postoperative dressing consisted of Betadine soaked Adaptic, sterile 4 x 4's, compression applied to the dorsal aspect of the right hallux. Sterile 4 x 4, sterile Kerlix all secured with a Coban wrap. The tourniquet was released noting appropriate cap refill time to all digits of the right foot. Postoperative instructions were given to the patient. The patient tolerated the anesthesia and procedure well, was transported from the operating room to the recovery room with vital signs stable. He is to follow up in my office in 10 days' period of time or sooner if necessary. Job ID: [id number] DocumentID: [id number] Dictated Date: 03/20/2020 11:01:18 Director Of Manufacturing Date: 03/20/2020 19:27:50 Dictated By: MILLICENT BRADFORD DPM
== END 2020-03-20 12:35 | disposition home or self-care (01) ==
LOC: SDC 07:53
PROVIDERS: ATTEND Podiatrist Foot & Ankle Surgery
DX: M67.471 Ganglion, right ankle and foot (principal); Z88.5 Allergy status to narcotic agent; I10 Essential (primary) hypertension; I25.10 Atherosclerotic heart disease of native coronary artery without angina pectoris; G47.33 Obstructive sleep apnea (adult) (pediatric); M19.90 Unspecified osteoarthritis, unspecified site; G62.9 Polyneuropathy, unspecified; E66.9 Obesity, unspecified; Z68.30 Body mass index [BMI] 30.0-30.9, adult; Z79.82 Long term (current) use of aspirin; Z79.899 Other long term (current) drug therapy; Z95.5 Presence of coronary angioplasty implant and graft
CPT/HCPCS: 87081; 88304

== ENCOUNTER → 2020-07-04 | Outpatient (CLI) | payer MEDICARE ==
[~2020-07-04] MED LIST changes: +TRM50T PO
--- NOTE | 2020-07-04 10:47 | Diagnostic Imaging Report ---
PROCEDURE: MRI right lower extremity without contrast. TECHNIQUE: Multiplanar, multisequence non contrast-enhanced MRI of the right lower extremity was accomplished. INDICATION: Right great toe pain. COMPARISON: There are no prior studies available for comparison. FINDINGS: By history, the patient has had recent removal of the toenail of the great toe. On this exam in the nailbed, there is now a well-circumscribed 0.8 x 1.8 cm area of increased signal immediately adjacent to the anterior aspect of the distal phalanx of the great toe on the STIR sagittal series. This does suggest a cyst in this region. There are also two other smaller cysts along the posterior aspect of the distal phalanx of the great toe. These measure 1.0 and 1.1 cm in size. There is no other mass or cyst identified. There is no abnormal signal arising from the osseous structures to suggest bone edema or a fracture. The Lisfranc joint where visualized is unremarkable. The major ligaments and tendons seem to be intact. The soft tissues are unremarkable. IMPRESSION: 1. There is a 0.8 x 1.8 cm cyst adjacent to the anterior aspect of the distal phalanx of the great toe. Two other smaller cysts are also seen along the posterior aspect of the distal phalanx. These could represent ganglion cysts. 2. There is no other cyst or solid mass identified and there is no sign of an acute bony injury. Dictated by: Dictated on workstation # [id number]
== END ==
LOC: RAD 09:30
PROVIDERS: ATTEND Podiatrist Foot & Ankle Surgery
DX: M67.471 Ganglion, right ankle and foot (principal)

== ENCOUNTER 2021-02-20 08:17 | Emergency (ER) | payer MEDICARE ==
[~2021-02-20] VITALS: Ht 180 cm; Wt 94.0 kg
[2021-02-20 08:45] LABS: BASOPHILS % (AUTO) 0 % (0-10); EOSINOPHILS # (AUTO) 0.2 10^3/uL (0.0-0.3); EOSINOPHILS % (AUTO) 2 % (0-10); HEMATOCRIT 41 % (40-54); HEMOGLOBIN 13.6 g/dL (13.3-17.7); LYMPHOCYTES # (AUTO) 1.3 10^3/uL (1.0-4.0); LYMPHOCYTES % (AUTO) 12 % (12-44); MEAN CORPUSCULAR HEMOGLOBIN 31 pg (25-34); MEAN CORPUSCULAR HGB CONC 33 g/dL (32-36); MEAN CORPUSCULAR VOLUME 93 fL (80-99); MEAN PLATELET VOLUME 8.7 fL (9.0-12.2); MONOCYTES # (AUTO) 1.1 10^3/uL (0.0-1.0); MONOCYTES % (AUTO) 10 % (0-12); NEUTROPHILS # (AUTO) 8.3 10^3/uL (1.8-7.8); NEUTROPHILS % (AUTO) 76 % (42-75); PLATELET COUNT 225 10^3/uL (130-400); WHITE BLOOD COUNT 10.9 10^3/uL (4.3-11.0)
--- NOTE | 2021-02-20 08:52 | ED Abdominal Pain ---
General Chief Complaint: Abdominal/GI Problems Stated Complaint: ABDOMINAL PAIN Nursing Triage Note: ARRIVED VIA AMB TO ROOM 10. COMPLAINS OF RIGHT LOWER ABD PAIN STARTING AT 0345 THIS AM. PT ASLO COMPLAINS OF N/V. Source of Information: Patient Exam Limitations: No Limitations History of Present Illness Date Seen by Provider: Feb 20, 2021 Time Seen by Provider: 08:39 Initial Comments This 81-year-old gentleman presents to the emergency room with complaints of right lower quadrant pain that woke him this morning. He has been nauseated without vomiting or diarrhea. He reports no recent constipation but he feels a sensation like constipation this morning. He has had ureteral stones in the past requiring intervention and states his current pain is reminiscent of prior ureteral stone. He denies any fever, hematuria, or other complaints. He reports recently having a "cold" for about 3 weeks. He was tested for Covid and was reportedly negative. He was prescribed antibiotics last week for those symptoms. He reports a similar episode of this pain last week that was brief and resolved without treatment or evaluation. Allergies and Home Medications Allergies Coded Allergies: morphine (Verified Adverse Reaction, Mild, REDNESS AT INJECTION SITE, 03/20/20) Patient Home Medication List Home Medication List Reviewed: Yes Allopurinol (Allopurinol) 300 Mg Tablet, 300 MG PO DAILY, (Reported) Entered as Reported by: PAOLO OLIVEIRA on 07/21/15 1018 Amlodipine Besylate (Amlodipine Besylate) 10 Mg Tablet, 10 MG PO DAILY, (Reported) Entered as Reported by: MILDRED MCCAIN on 08/27/18 1332 Aspirin (Aspir 81) 81 Mg Tablet.dr, 81 MG PO DAILY, (Reported) Entered as Reported by: MILDRED MCCAIN on 08/27/18 1332 Atorvastatin Calcium (Atorvastatin Calcium) 40 Mg Tablet, 20 MG PO HS, (Reported) Entered as Reported by: MILDRED MCCAIN on 08/27/18 1332 Finasteride (Finasteride) 5 Mg Tablet, 5 MG PO DAILY, (Reported) Entered as Reported by: MILDRED MCCAIN on 08/27/18 1332 Hydrocodone/Acetaminophen (Hydrocodone-Acetamin 5-325 mg) 1 Each Tablet, 1-2 TAB PO Q4H PRN for PAIN-MODERATE (5-7) Prescribed by: VIVIANE MANN on 02/20/21 1052 Latanoprost (Latanoprost) 2.5 Ml Drops, 1 DROP OU HS, (Reported) Entered as Reported by: MILDRED MCCAIN on 08/27/18 1332 Losartan Potassium (Losartan Potassium) 100 Mg Tablet, 50 MG PO BID, (Reported) Entered as Reported by: MILDRED MCCAIN on 08/27/18 1332 Metoprolol Succinate (Metoprolol Succinate) 100 Mg Tab.er.24h, 50 MG PO BID, (Reported) Entered as Reported by: MILDRED MCCAIN on 08/27/18 1332 Mv,Minerals/FA/Lycopene/Ginkgo (One-A-Day Men's 50+ Tablet) 1 Each Tablet, 1 EACH PO DAILY, (Reported) Entered as Reported by: MILDRED MCCAIN on 08/27/18 1332 Ondansetron (Ondansetron Odt) 4 Mg Tab.rapdis, 4 MG SL Q4H PRN for NAUSEA/VOMITING Prescribed by: VIVIANE MANN on 02/20/21 1051 Tamsulosin HCl (Flomax) 0.4 Mg Cap, 0.4 MG PO DAILY, (Reported) Entered as Reported by: MILDRED MCCAIN on 08/27/18 1332 Tramadol HCl (Tramadol HCl) 50 Mg Tablet, 50 MG PO Q4H PRN for PAIN-MODERATE (5- 7) Prescribed by: NAHOMI BRADFORD on 03/20/20 1054 Review of Systems Review of Systems Constitutional: no symptoms reported EENTM: See HPI Respiratory: See HPI Cardiovascular: No Symptoms Reported Gastrointestinal: See HPI Genitourinary: See HPI Musculoskeletal: no symptoms reported Skin: no symptoms reported Psychiatric/Neurological: No Symptoms Reported Endocrine: No Symptoms Reported Hematologic/Lymphatic: No Symptoms Reported Past Urxiofg-Etxidu-Kfmcvz Hx Patient Social History Tobacco Use?: No Smoking Status: Never a Smoker Substance use?: No Alcohol Use?: No Immunizations Up To Date Tetanus Booster (TDap): Unknown Second COVID19 Vaccination Doc: 09/25 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[employer] Seasonal Allergies Seasonal Allergies: No Past Medical History Surgeries: Yes (hemmorhoids, ANGIOPLASTY PRIOR TO STENT, lithotripsy) Coronary Stent Respiratory: Yes Sleep Apnea Currently Using CPAP: No Currently Using BIPAP: No Cardiac: Yes (2006 NE w angioplasty; 2008 stent x1) Coronary Artery Disease, Heart Attack, High Cholesterol, Hypertension Neurological: Yes TIA Reproductive Disorders: No Sexually Transmitted Disease: No HIV/AIDS: No Genitourinary: Yes Benign Prostatic Hyperpl, Prostate Problems, Kidney Stones Gastrointestinal: Yes Gastroesophageal Reflux Musculoskeletal: Yes Arthritis, Chronic Back Pain, Gout Endocrine: No HEENT: Yes (bilat retinal detachment) Loss of Vision: Right Hearing Impairment: Hard of Hearing Cancer: No Psychosocial: No Integumentary: No Blood Disorders: No Adverse Reaction/Blood Tranf: No (N/A) Family Medical History FH: stomach cancer maternal grandfather, Onset:60 years & older Myocardial infarction 19 FATHER, Onset:60 years & older 19 MOTHER, Onset:60 years & older G8 BROTHER, Onset:60 years & older paternal grandfather, Onset:Unknown Hypertension Physical Exam Vital Signs Vital Signs - First Documented 02/20/21 08:30 Temp 36.3 Pulse 55 Resp 16 B/P (MAP) 157/84 (108) Pulse Ox 97 O2 Delivery Room Air Capillary Refill : Less Than 3 Seconds Height/Weight/BMI Height: 5'11.00" Weight: 218lbs. 0.0oz. 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, no motor/sensory deficits, alert, normal mood/affect, oriented x 3 Skin: normal color, warm/dry Progress/Results/Core Measures Results/Orders Lab Results Laboratory Tests Test 02/20/21 08:38 02/20/21 08:52 Range/Units White Blood Count 10.9 4.3-11.0 10^3/uL Red Blood Count 4.40 4.30-5.52 10^6/uL Hemoglobin 13.6 13.3-17.7 g/dL Hematocrit 41 40-54 % Mean Corpuscular Volume 93 80-99 fL Mean Corpuscular Hemoglobin 31 25-34 pg Mean Corpuscular Hemoglobin Concent 33 32-36 g/dL Red Cell Distribution Width 13.4 10.0-14.5 % Platelet Count 225 130-400 10^3/uL Mean Platelet Volume 8.7 L 9.0-12.2 fL Immature Granulocyte % (Auto) 0 % Neutrophils (%) (Auto) 76 H 42-75 % Lymphocytes (%) (Auto) 12 12-44 % Monocytes (%) (Auto) 10 0-12 % Eosinophils (%) (Auto) 2 0-10 % Basophils (%) (Auto) 0 0-10 % Neutrophils # (Auto) 8.3 H 1.8-7.8 10^3/uL Lymphocytes # (Auto) 1.3 1.0-4.0 10^3/uL Monocytes # (Auto) 1.1 H 0.0-1.0 10^3/uL Eosinophils # (Auto) 0.2 0.0-0.3 10^3/uL Basophils # (Auto) 0.0 0.0-0.1 10^3/uL Immature Granulocyte # (Auto) 0.0 0.0-0.1 10^3/uL Sodium Level 137 135-145 MMOL/L Potassium Level 4.5 3.6-5.0 MMOL/L Chloride Level 103 98-107 MMOL/L Carbon Dioxide Level 23 21-32 MMOL/L Anion Gap 11 5-14 MMOL/L Blood Urea Nitrogen 26 H 7-18 MG/DL Creatinine 1.47 H 0.60-1.30 MG/DL Estimat Glomerular Filtration Rate 46 BUN/Creatinine Ratio 18 Glucose Level 137 H 70-105 MG/DL Calcium Level 9.2 8.5-10.1 MG/DL Corrected Calcium 9.1 8.5-10.1 MG/DL Total Bilirubin 0.7 0.1-1.0 MG/DL Aspartate Amino Transf (AST/SGOT) 18 5-34 U/L Alanine Aminotransferase (ALT/SGPT) 13 0-55 U/L Alkaline Phosphatase 77 40-136 U/L C-Reactive Protein High Sensitivity 0.22 0.00-0.50 MG/DL Total Protein 7.3 6.4-8.2 GM/DL Albumin 4.1 3.2-4.5 GM/DL Lipase 24 8-78 U/L Urine Color YELLOW Urine Clarity CLEAR Urine pH 6.0 5-9 Urine Specific Alba 1.025 H 1.016-1.022 Urine Protein NEGATIVE NEGATIVE Urine Glucose (UA) NEGATIVE NEGATIVE Urine Ketones NEGATIVE NEGATIVE Urine Nitrite NEGATIVE NEGATIVE Urine Bilirubin NEGATIVE NEGATIVE Urine Urobilinogen 0.2 < = 1.0 MG/DL Urine Leukocyte Esterase NEGATIVE NEGATIVE Urine RBC (Auto) 1+ H NEGATIVE Urine RBC 5-10 H /HPF Urine WBC RARE /HPF Urine Crystals NONE /LPF Urine Bacteria NEGATIVE /HPF Urine Casts NONE /LPF Urine Mucus NEGATIVE /LPF Urine Culture Indicated NO My Orders Orders - VIVIANE VAN MD Cbc With Automated Diff (02/20/21 08:39) Comprehensive Metabolic Panel (02/20/21 08:39) Hs C Reactive Protein (02/20/21 08:39) Lipase (02/20/21 08:39) Ua Culture If Indicated (02/20/21 08:39) Ed Iv/Invasive Line Start (02/20/21 08:39) Lactated Ringers (Lr 1000 Ml Iv Solution (02/20/21 09:00) Ondansetron Injection (Zofran Injectio (02/20/21 09:00) Ketorolac Injection (Toradol Injection) (02/20/21 09:00) Ct Abd/Pelvis Wo(Kidney Stone) (02/20/21 09:30) Abdomen/Kub 1view (02/20/21 10:41) Medications Given in ED Current Medications Medications Dose Ordered Sig/Leandro Route Start Time Stop Time Status Last Admin Dose Admin Ketorolac Tromethamine 15 mg ONCE ONCE IVP 02/20/21 09:00 02/20/21 09:01 DC 02/20/21 09:06 15 MG Lactated Ringer's 1,000 ml @ 0 mls/hr Q0M ONCE IV 02/20/21 09:00 02/20/21 09:01 DC 02/20/21 09:06 500 MLS/HR Ondansetron HCl 8 mg ONCE ONCE IVP 02/20/21 09:00 02/20/21 09:01 DC 02/20/21 09:06 8 MG Vital Signs/I&O 02/20/21 02/20/21 08:30 11:13 Temp 36.3 Pulse 55 76 Resp 16 16 B/P (MAP) 157/84 (108) 153/98 Pulse Ox 97 98 O2 Delivery Room Air Room Air Blood Pressure Mean: 108 Progress Progress Note #1: Time: 08:52 Progress Note Patient seen and examined. IV fluids, Zofran, and Toradol have been ordered. Type of imaging will be dependent on labs and urinalysis results. Progress Note #2: Time: 09:30 Progress Note Patient has had notable improvement in symptoms after treatment. He did have a microscopic hematuria on urinalysis. We will proceed with CT stone search for further evaluation. Progress Note #3: Progress Note A large right proximal ureteral stone was discovered on CT. Dr. Maravilla was consulted and presented to the ER. Discharge planning was done with his input. Patient cannot undergo lithotripsy today due to his aspirin use. The densities of the kidneys will need to be further evaluated by alternative imaging. CT with contrast is not preferred due to patient's lower GFR. MRI is not available. Perhaps ultrasound may be used on an outpatient basis and this can be discussed with Dr. Maravilla further in follow-up. Diagnostic Imaging Diagonstic Imaging: CT Plain Films/CT/US/NM/MRI: abdomen, pelvis Comments CT abdomen and pelvis viewed by me and report reviewed. See report below NAME: WILEY GARCIA J MED REC#: [id number] PT STATUS: REG ER : 1940 PHYSICIAN: VIVIANE VAN MD ADMIT DATE: 02/20/21/ER Draft Date of Exam:02/20/21 CT ABD/PELVIS WO(KIDNEY STONE) EXAMINATION: CT abdomen and pelvis without contrast. TECHNIQUE: Multiple contiguous axial images were obtained through the abdomen and pelvis without the use of intravenous contrast. All CT scans use one or more of the following dose optimizing techniques: automated exposure control, MA and/or KvP adjustment based on patient size and exam type or iterative reconstruction. HISTORY: Flank pain, kidney stone suspected COMPARISON: 03/01/2009 FINDINGS: Lung bases: Calcified granuloma as well as atelectasis within the lung bases. There is a small pericardial effusion. Solid organs: The liver is normal. The gallbladder is normal. There is no biliary ductal dilation. Pancreas is normal. Spleen is normal. Adrenal glands are normal. There is 0.8 cm calculus within the mid right ureter which results in right-sided hydronephrosis and hydroureter. There are additional bilateral nonobstructing renal calculi measuring up to 0.3 cm. There is a hyperdense left inferior pole cortical lesion measuring up to 4.6 cm. There is a similar 3.6 cm lesion arising from the superior pole of the right kidney. Bowel: The stomach and small bowel are normal without obstruction. There is diffuse colonic diverticulosis. The appendix is normal. Peritoneum: There is no intraperitoneal free fluid or free air. No suspicious lymphadenopathy. Vasculature: Calcification of the aorta without aneurysm. Musculoskeletal: Degenerative changes of the spine without suspicious osseous lesion or compression fracture. There is a small fat-containing periumbilical hernia. Small fat-containing inguinal hernias. Pelvis: The prostate gland is enlarged. There is mild diffuse bladder wall thickening. IMPRESSION: 1. A 0.8 cm obstructing calculus within the mid right ureter resulting in right-sided hydronephrosis. 2. Additional nonobstructing bilateral renal calculi measuring up to 0.3 cm. 3. Indeterminate hyperdense bilateral renal cortical lesions measuring up to 4.6 cm. Consider further evaluation with MRI of the abdomen renal mass protocol. 4. Colonic diverticulosis without findings diverticulitis. 5. Mild diffuse bladder wall thickening. Recommend correlation with urinalysis. Dictated on workstation # [id number] Dict: 02/20/21 0949 Trans: 02/20/21 1004 [facility] [id number] Interpreted by: STEPHANIE ALMAZAN DO Diagonstic Imaging: Xray Plain Films/CT/US/NM/MRI: abdomen, pelvis Comments NAME: RADHAWILEY Knowles MED REC#: [id number] PT STATUS: DEP ER : 1940 PHYSICIAN: VIVIANE VAN MD ADMIT DATE: 02/20/21/ER Signed Date of Exam:02/20/21 ABDOMEN/KUB 1VIEW CLINICAL INDICATION: Patient with right lower abdominal pain starting at 0345 hours. Patient complains of nausea and vomiting. EXAM: KUB x-ray. COMPARISON: KUB x-ray dated 10/04/2014. CT scan of the abdomen and pelvis without contrast dated 02/20/2021. FINDINGS AND IMPRESSION: 1: There is an 8 mm stone seen in the right side of the L4-L5 disk space region which correlates to the stone in the mid right ureter on the prior CT scan. 2: There are multiple phleboliths seen on both sides of the pelvis. This limits evaluation for stones in the region of the distal ureters. 3: Nonobstructive bowel gas pattern. 4: There are degenerative spurs involving the lumbar spine. Dictated by: Dictated on workstation # [id number] Dict: 02/20/21 1128 Trans: 02/20/211816 [id number] Interpreted by: EDITA ANGLIN MD Electronically signed by: EDITA ANGLIN MD 02/20/211816 Departure Impression Primary Impression: Right ureteral stone Additional Impression: Kidney mass Disposition: HOME, SELF-CARE Condition: Improved Departure-Patient Inst. Decision time for Depature: 10:40 Referrals: MIGUEL MIRANDA MD (PCP/Family) Primary Care Physician Patient Instructions: Kidney Stones in Adults Add. Discharge Instructions: Follow-up with Dr. Maravilla at 10:30 February 23 in his office. He will discuss the plan for your kidney stone and your kidney masses at that time. Prior to that appointment, present to the hospital at about 8:00 to have a repeat x-ray performed to track the progress of your kidney stone. Bring the order form provided with you and to check in at registration. Use your pain medication and nausea medication as prescribed. If symptoms are not well controlled with these medications, please return to the emergency room. Also return to the emergency room if you develop new symptoms such as vomiting, fever, etc. If you take the hydrocodone for pain, consider taking a stool softener such as Colace to prevent constipation. Call with questions or concerns. Do not take any blood thinning medications including aspirin or any NSAID medications such as ibuprofen, naproxen, Aleve, Advil, etc. All discharge instructions reviewed with patient and/or family. Voiced understanding. Scripts Ondansetron (Ondansetron Odt) 4 Mg Tab.rapdis 4 MG SL Q4H PRN for NAUSEA/VOMITING, #10 TAB Prov: VIVIANE VAN MD 02/20/21 Hydrocodone/Acetaminophen (Hydrocodone-Acetamin 5-325 mg) 1 Each Tablet 1-2 TAB PO Q4H PRN for PAIN-MODERATE (5-7), #20 TAB Prov: VIVIANE VAN MD 02/20/21 Copy Copies To 1: NATASHA MARAVILLA MD Copies To 2: MIGUEL MIRANDA MD, JOSHUA T MD Feb 20, 2021 08:52
[2021-02-20 08:57] LABS: ALBUMIN 4.1 GM/DL (3.2-4.5); POTASSIUM 4.5 MMOL/L (3.6-5.0)
[2021-02-20 08:58] LABS: CALCIUM 9.2 MG/DL (8.5-10.1)
[2021-02-20 09:00] LABS: TOTAL PROTEIN 7.3 GM/DL (6.4-8.2)
[2021-02-20] MEDS ORDERED: KETOROLAC 30 MG/ML VIAL IVP ONE (09:00)
[2021-02-20] MEDS ORDERED: ONDANSETRON 4 MG/2 ML (SDV) Z0FRAN IVP ONE (09:00)
[2021-02-20] MEDS ORDERED: LACTATED RINGERS 1,000 ML IV ONE (09:00)
[2021-02-20 09:01] LABS: BILIRUBIN,TOTAL 0.7 MG/DL (0.1-1.0)
[2021-02-20 09:03] LABS: CREATININE SERUM 1.47 MG/DL (0.60-1.30)
[2021-02-20 09:03] LABS: BILIRUBIN,URINE NEGATIVE (NEGATIVE); CLARITY,URINE CLEAR; COLOR,URINE YELLOW; GLUCOSE, URINE (UA) NEGATIVE (NEGATIVE); KETONES,URINE NEGATIVE (NEGATIVE); LEUKOCYTE ESTERASE ,URINE NEGATIVE (NEGATIVE); NITRITE,URINE NEGATIVE (NEGATIVE); PROTEIN,URINE NEGATIVE (NEGATIVE)
[2021-02-20 09:17] LABS: BACTERIA,URINE NEGATIVE /HPF; WBC,URINE RARE /HPF
--- NOTE | 2021-02-20 10:04 | Diagnostic Imaging Report ---
EXAMINATION: CT abdomen and pelvis without contrast. TECHNIQUE: Multiple contiguous axial images were obtained through the abdomen and pelvis without the use of intravenous contrast. All CT scans use one or more of the following dose optimizing techniques: automated exposure control, MA and/or KvP adjustment based on patient size and exam type or iterative reconstruction. HISTORY: Flank pain, kidney stone suspected COMPARISON: 03/01/2009 FINDINGS: Lung bases: Calcified granuloma as well as atelectasis within the lung bases. There is a small pericardial effusion. Solid organs: The liver is normal. The gallbladder is normal. There is no biliary ductal dilation. Pancreas is normal. Spleen is normal. Adrenal glands are normal. There is 0.8 cm calculus within the mid right ureter which results in right-sided hydronephrosis and hydroureter. There are additional bilateral nonobstructing renal calculi measuring up to 0.3 cm. There is a hyperdense left inferior pole cortical lesion measuring up to 4.6 cm. There is a similar 3.6 cm lesion arising from the superior pole of the right kidney. Bowel: The stomach and small bowel are normal without obstruction. There is diffuse colonic diverticulosis. The appendix is normal. Peritoneum: There is no intraperitoneal free fluid or free air. No suspicious lymphadenopathy. Vasculature: Calcification of the aorta without aneurysm. Musculoskeletal: Degenerative changes of the spine without suspicious osseous lesion or compression fracture. There is a small fat-containing periumbilical hernia. Small fat-containing inguinal hernias. Pelvis: The prostate gland is enlarged. There is mild diffuse bladder wall thickening. IMPRESSION: 1. A 0.8 cm obstructing calculus within the mid right ureter resulting in right-sided hydronephrosis. 2. Additional nonobstructing bilateral renal calculi measuring up to 0.3 cm. 3. Indeterminate hyperdense bilateral renal cortical lesions measuring up to 4.6 cm. Consider further evaluation with MRI of the abdomen renal mass protocol. 4. Colonic diverticulosis without findings diverticulitis. 5. Mild diffuse bladder wall thickening. Recommend correlation with urinalysis. Dictated by: Dictated on workstation # [id number]
[2021-02-20] MEDS ORDERED: ACHD5005 PO (10:51)
[2021-02-20] MEDS ORDERED: ONDA4TAB11 SL (10:51)
[2021-02-20 11:13] VITALS: BP 153/98
--- NOTE | 2021-02-20 11:34 | Diagnostic Imaging Report ---
CLINICAL INDICATION: Patient with right lower abdominal pain starting at 0345 hours. Patient complains of nausea and vomiting. EXAM: KUB x-ray. COMPARISON: KUB x-ray dated 10/04/2014. CT scan of the abdomen and pelvis without contrast dated 02/20/2021. FINDINGS AND IMPRESSION: 1: There is an 8 mm stone seen in the right side of the L4-L5 disk space region which correlates to the stone in the mid right ureter on the prior CT scan. 2: There are multiple phleboliths seen on both sides of the pelvis. This limits evaluation for stones in the region of the distal ureters. 3: Nonobstructive bowel gas pattern. 4: There are degenerative spurs involving the lumbar spine. Dictated by: Dictated on workstation # [id number]
== END 2021-02-20 11:13 | disposition home or self-care (01) ==
LOC: EDUNIT# 08:17 → ER 08:21
DX: N13.2 Hydronephrosis with renal and ureteral calculous obstruction (principal); N28.89 Other specified disorders of kidney and ureter; G47.30 Sleep apnea, unspecified; I25.2 Old myocardial infarction; I10 Essential (primary) hypertension; M10.9 Gout, unspecified; E78.00 Pure hypercholesterolemia, unspecified; I25.10 Atherosclerotic heart disease of native coronary artery without angina pectoris; N40.0 Benign prostatic hyperplasia without lower urinary tract symptoms; G89.29 Other chronic pain; M54.9 Dorsalgia, unspecified; Z86.73 Personal history of transient ischemic attack (TIA), and cerebral infarction without residual deficits; Z79.82 Long term (current) use of aspirin; Z79.891 Long term (current) use of opiate analgesic; Z79.899 Other long term (current) drug therapy
CPT/HCPCS: 36415; 74018; 74176; 80053; 81000; 83690; 85025; 86141

== ENCOUNTER → 2021-02-23 | Outpatient (CLI) | payer MEDICARE ==
[~2021-02-23] MED LIST changes: +ACHD5005 PO; +ASPI-999 PO; +ISOS30TA82 PO; +LATA7.5D OU; +LOSA50TA63 PO; +ONDA4TAB11 SL
--- NOTE | 2021-02-23 09:29 | Diagnostic Imaging Report ---
INDICATION: Right ureteral stone. TIME OF EXAM: 9:11 AM CORRELATION is made with prior radiograph from 02/20/2021. The previously noted stone in the proximal right ureter at the level of L4-L5 is unchanged in position. Numerous calcific densities in the pelvis are again noted suggestive of phleboliths. No definite calculi are seen overlying the renal shadows bilaterally. The bowel gas pattern is unremarkable. IMPRESSION: No significant change in proximal right ureteric calculus when compared with prior radiograph 3 days earlier. Dictated by: Dictated on workstation # [id number]
== END ==
LOC: RAD 08:50
PROVIDERS: ATTEND Urology
DX: N20.1 Calculus of ureter (principal)
CPT/HCPCS: 74018

== ENCOUNTER → 2021-02-27 | Outpatient (CLI) | payer MEDICARE ==
[2021-02-27 10:15] LABS: CREATININE SERUM 1.7 MG/DL (0.60-1.30)
--- NOTE | 2021-02-27 13:22 | Diagnostic Imaging Report ---
PROCEDURE: US Renal Bilateral. TECHNIQUE: Multiple real-time grayscale images were obtained over the kidneys in various projections bilaterally. INDICATION: Bilateral renal masses. COMPARISON: Correlation is made with CT study from 02/20/2021. FINDINGS: Right kidney measures 11.9 x 5.0 x 5.6 cm, and the left kidney measures 10.8 x 5.3 x 5.6 cm. There is a solid-appearing mass in the upper pole of the right kidney extending exophytically measuring 3.4 x 3.1 x 3.1 cm. This does show some internal vascularity. There is a cystic lesion in the lower pole of the right kidney measuring 5.0 x 5.0 x 4.7 cm. Right kidney does show some mild hydronephrosis. No calculi are seen. Left kidney also contains a mass in the lower pole measuring 4.8 x 3.7 x 4.0 cm. This also appears to be solid. There appears to be some internal vascularity. No hydronephrosis or calculi are seen. Bladder is grossly unremarkable, although the ureteral jets are not visualized. IMPRESSION: 1. Bilateral solid renal masses. Renal cell carcinomas cannot be excluded. There is also a large cystic mass in the lower pole right kidney. 2. Mild right-sided hydronephrosis. Dictated by: Dictated on workstation # [id number]
== END ==
LOC: RAD 09:45
PROVIDERS: ATTEND Urology
DX: N28.89 Other specified disorders of kidney and ureter (principal); N13.30 Unspecified hydronephrosis
CPT/HCPCS: 36415; 76770; 82565; 84520

== ENCOUNTER 2021-02-28 10:40 | Outpatient (RCR) | payer MEDICARE ==
[~2021-02-28] VITALS: Ht 177.8 cm; Wt 95.0 kg
== END 2021-02-28 15:00 | disposition home or self-care (01) ==
LOC: PREOP 10:40
PROVIDERS: ATTEND Urology
DX: Z01.812 Encounter for preprocedural laboratory examination (principal); N20.1 Calculus of ureter; Z20.822 Contact with and (suspected) exposure to COVID-19
CPT/HCPCS: 87636

== ENCOUNTER 2021-03-06 06:30 | Day surgery (SDC) | payer MEDICARE ==
[~2021-03-06] VITALS: Ht 177.8 cm; Wt 95.0 kg
[2021-03-06] VITALS (11 sets, daily range): BP systolic 119–141; BP diastolic 75–91
[2021-03-06] MEDS ORDERED: LACTATED RINGERS 1,000 ML IV PRN (06:45)
[2021-03-06] MEDS ORDERED: cefTRIAXone 1 GM PRE-MIX 50 ML IV ONE (07:00)
--- NOTE | 2021-03-06 07:04 | Progress Note-Pre Operative ---
Pre-Operative Progress Note H&P Reviewed The H&P was reviewed, patient examined and no changes noted. Date Seen by Provider: Mar 06, 2021 Time Seen by Provider: 07:04 Date H&P Reviewed: Mar 06, 2021 Time H&P Reviewed: 07:04 Pre-Operative Diagnosis: RT URETERAL STONE NATASHA MARAVILLA MD Mar 06, 2021 07:04
--- NOTE | 2021-03-06 07:27 | Diagnostic Imaging Report ---
History: Lithotripsy COMPARISON: 02/23/2021 TECHNIQUE: Frontal view of the abdomen FINDINGS: No distended loops of bowel are seen. There is no large collection of free air. The calcification along the course of the right ureter is again seen projecting over the right sacral ala. This demonstrates mild distal migration since the prior exam. Numerous calculi are again seen at the pelvis. IMPRESSION: 1. Mild distal migration of the right ureteral calculus, projecting over the right sacral ala. 2. Stable numerous calcifications in the pelvis. Dictated by: Dictated on workstation # [id number]
[2021-03-06] MEDS ORDERED: proPOfol 200 MG/20 ML (DIPRIVAN) VIAL IV ONE (08:13)
[2021-03-06] MEDS ORDERED: LIDOCAINE PF 2% 5 ML (XYLOCAINE) VIAL ONE (08:13)
[2021-03-06] MEDS ORDERED: ONDANSETRON 4 MG/2 ML (SDV) Z0FRAN ONE (08:13)
[2021-03-06] MEDS ORDERED: fentaNYL INJ 100 MCG/2 ML AMP ONE (08:13)
--- NOTE | 2021-03-06 08:38 | Progress Note-Post Operative ---
Post-Operative Progess Note Surgeon (s)/Sales Store Checker (s) Surgeon NATASHA MARAVILLA MD Sales Store Checker: NONE Pre-Operative Diagnosis RT URETERAL STONE Post-Operative Diagnosis SAME Procedure & Operative Findings Date of Procedure 03/06/21 Procedure Performed/Findings RT ESWL Anesthesia Type GENERAL Estimated Blood Loss Estimated blood loss (mL): NONE Specimens/Packing Specimens Removed NONE Packing: NONE NATASHA MARAVILLA MD Mar 06, 2021 08:37
--- NOTE | 2021-03-06 08:40 | Discharge Inst-Urology ---
Discharge Inst-Urology Reconcile Patient Problems Problems Reviewed?: Yes Final Diagnosis RT URETERAL STONE Patient Instructions/Follow Up Plan/Assessment/Instructions Please make appointment to been seen in office Monday 03/19, KUB prior to it. KUB on way home Post ESWL instructions Stay off ASA Increase oral fluids for 48 hours and then as needed. Diet and Activity as tolerated. If questions or concerns contact your physician Or seek help at emergency department. NATASHA MARAVILLA MD Mar 06, 2021 08:40
[2021-03-06] MEDS ORDERED: KETOROLAC 30 MG/ML VIAL ONE (08:43)
[2021-03-06] MEDS ORDERED: FUROSEMIDE 40 MG/4 ML INJ (LASIX) ONE (08:43)
[2021-03-06] MEDS ORDERED: GLYCOPYRROLATE 0.2 MG/ML (ROBINUL) 2 ML VIAL ONE (08:43)
[2021-03-06] MEDS ORDERED: SEVOFLURANE (ULTANE) 15 ML INHAL SOLN ONE (08:47)
--- NOTE | 2021-03-06 09:09 | Anesthesia-General Post-Op ---
General Patient Condition Mental Status/LOC: Same as Preop Cardiovascular: Satisfactory Nausea/Vomiting: Absent Respiratory: Satisfactory Pain: Controlled Complications: Absent Post Op Complications Complications None Follow Up Care/Instructions Patient Instructions None needed. Anesthesia/Patient Condition Patient Condition Patient is doing well, no complaints, stable vital signs, no apparent adverse anesthesia problems. No complications reported per nursing. JAMES LINDSAY CRNA Mar 06, 2021 09:09
[2021-03-06] MEDS ORDERED: fentaNYL INJ 100 MCG/2 ML AMP IVP ONE (09:15)
[2021-03-06] MEDS ORDERED: ONDANSETRON 4 MG/2 ML (SDV) Z0FRAN IVP PRN (09:15)
[2021-03-06] MEDS ORDERED: PROMETHAZINE INJ 25 MG/ML (PHENERGAN) AMP IVP ONE (09:15)
[2021-03-06] MEDS ORDERED: TMSL.4C PO (10:31)
[2021-03-06] MEDS ORDERED: KETO10TA PO (10:31)
[2021-03-06] MEDS ORDERED: NITR-65 PO (10:31)
--- NOTE | 2021-03-06 11:14 | Diagnostic Imaging Report ---
ABDOMEN/KUB 1VIEW INDICATION: Ureteral stone. Status post lithotripsy. COMPARISON: Earlier same day at 06:55 a.m. FINDINGS AND IMPRESSION: The calcification located along the right superior sacral ala is more amorphous and fragmented compatible with recent lithotripsy. Dictated by: Dictated on workstation # [id number]
--- NOTE | 2021-03-06 11:54 | OPERATIVE REPORT ---
DATE OF SERVICE: 03/06/2021 PREOPERATIVE DIAGNOSIS: Right ureteral stone. POSTOPERATIVE DIAGNOSIS: Right ureteral stone. OPERATION PERFORMED: Right ESWL. SURGEON: Nathaniel Maravilla MD ANESTHESIA: General. COMPLICATIONS: None. DESCRIPTION OF PROCEDURE: Under satisfactory general anesthesia, the patient in supine position on the ESWL table, the right ureteral stone was localized. Shocks were delivered at kV of 6, a total of 3000 shocks completely fragmented the stone, it was hardly visualized. The patient received 40 mg of Lasix and 30 mg of Toradol IV at the end of the procedure. He tolerated the procedure and anesthesia well and was sent to recovery room in stable condition. CC: Dr. Orlando - requested, unable to deliver. Job ID: [id number] DocumentID: [id number] Dictated Date: 03/06/2021 08:50:54 Candy Waffle Assembler Date: 03/06/2021 11:53:58 Dictated By: NATHANIEL MARAVILLA MD
== END 2021-03-06 11:10 | disposition home or self-care (01) ==
LOC: SDC 06:30
PROVIDERS: ATTEND Urology
DX: N20.1 Calculus of ureter (principal); I10 Essential (primary) hypertension; I25.10 Atherosclerotic heart disease of native coronary artery without angina pectoris; G47.33 Obstructive sleep apnea (adult) (pediatric); E66.9 Obesity, unspecified; I25.2 Old myocardial infarction; N40.0 Benign prostatic hyperplasia without lower urinary tract symptoms; Z68.30 Body mass index [BMI] 30.0-30.9, adult; Z79.899 Other long term (current) drug therapy; Z79.82 Long term (current) use of aspirin
CPT/HCPCS: 74018; 87081

== ENCOUNTER → 2021-03-19 | Outpatient (CLI) | payer MEDICARE ==
[~2021-03-19] MED LIST changes: +KETO10TA PO; +NITR-65 PO
--- NOTE | 2021-03-19 15:28 | Diagnostic Imaging Report ---
INDICATION: History of kidney stones. Status post ESWL. COMPARISON: 03/06/2021. FINDINGS: A single supine radiographic view of the abdomen was obtained and demonstrates a nonobstructed small bowel gas pattern. There is no large collection of free intraperitoneal air. Amorphous extraosseous calcifications were seen projecting over the right sacral ala on the previous study and are absent, suggestive of interval clearing. Multiple pelvic phleboliths are again noted. No unexpected radiopaque foreign bodies are seen. IMPRESSION: 1. Interval clearing of the previously described ureteral calculi. 2. Nonobstructed small bowel gas pattern. Dictated by: Dictated on workstation # [id number]
== END ==
LOC: RAD 13:56
PROVIDERS: ATTEND Urology
DX: N20.1 Calculus of ureter (principal)
CPT/HCPCS: 74018

== ENCOUNTER 2023-02-23 11:24 | Emergency (ER) | payer MEDICARE ==
[~2023-02-23] VITALS: Ht 177.8 cm; Wt 96.6 kg
[~2023-02-23 11:24] MED LIST changes: -LOSA100T57 PO; +LOSA100T58 PO
[2023-02-23] MEDS ORDERED: fentaNYL INJECTION 100 MCG/2 ML VIAL IVP ONE (11:45)
[2023-02-23] MEDS ORDERED: NS IV 500 ML 500 ML IV ONE (11:45)
--- NOTE | 2023-02-23 11:45 | ED Abdominal Pain ---
General Chief Complaint: Abdominal/GI Problems Stated Complaint: POSSIBLE KIDNEY STONE Nursing Triage Note: PT ARRIVED POV WITH CC OF LEFT GROIN PAIN THAT STARTED YESTERDAY. PT STATES THAT HE HAS A HX OF KIDNEY STONES. Source of Information: Patient Exam Limitations: No Limitations History of Present Illness Date Seen by Provider: Feb 23, 2023 Time Seen by Provider: 11:29 Initial Comments 83-year-old male presents to the ER with complaint of left lower abdominal/groin pain starting yesterday. He states that the pain is constant and is not moving, but reports that the pain is worse with movement like getting up and turning. He reports history of kidney stones, states that it kind of feels similar to a kidney stone, but the pain is not changing locations. Denies any injury to the area. Denies any possible overuse injury. He denies fevers, nausea, vomiting, diarrhea, dysuria, hematuria, and flank pain. Last bowel movement was a couple days ago. He states that yesterday he was not able to get up due to pain so he did not use the restroom. Allergies and Home Medications Allergies Coded Allergies: morphine (Verified Adverse Reaction, Mild, REDNESS AT INJECTION SITE, 03/20/20) Patient Home Medication List Home Medication List Reviewed: Yes Allopurinol (Allopurinol) 300 Mg Tablet, 300 MG PO DAILY, (Reported) Entered as Reported by: PAOLO OLIVEIRA on 07/21/15 1018 Amlodipine Besylate (Amlodipine Besylate) 10 Mg Tablet, 10 MG PO DAILY, (Reported) Entered as Reported by: MILDRED MCCAIN on 08/27/18 1332 Amoxicillin/Potassium Clav (Amox Tr-K Clv 875-125 mg Tab) 875 Mg-125 Mg Tablet, 1 EACH PO BID Prescribed by: Karen Barnes on 02/23/23 1427 Atorvastatin Calcium (Atorvastatin Calcium) 40 Mg Tablet, 20 MG PO HS, (Reported) Entered as Reported by: MILDRED MCCAIN on 08/27/18 1332 Finasteride (Finasteride) 5 Mg Tablet, 5 MG PO DAILY, (Reported) Entered as Reported by: MILDRED MCCAIN on 08/27/18 1332 Hydrocodone/Acetaminophen (Hydrocodone-Acetamin 5-325 mg) 5 Mg-325 Mg Tablet, 1 TAB PO Q4H PRN for PAIN-MODERATE (5-7) Prescribed by: Karen Barnes on 02/23/23 1427 Isosorbide Mononitrate (Isosorbide Mononitrate ER) 30 Mg Tab.er.24h, 30 MG PO HS, (Reported) Entered as Reported by: MILDRED MCCAIN on 02/27/21 1459 Ketorolac Tromethamine (Ketorolac Tromethamine) 10 Mg Tablet, 10 MG PO Q6H Prescribed by: KHADIJAH ALVAREZ on 03/06/21 1031 Latanoprost/Pf (Latanoprost 0.005% Eye Drop) 7.5 Ml Drops, 1 DROP OU HS, (Reported) Entered as Reported by: MILDRED MCCAIN on 02/27/21 1459 Losartan Potassium (Losartan Potassium) 50 Mg Tablet, 50 MG PO BID, (Reported) Entered as Reported by: MILDRED MCCAIN on 02/27/21 1459 Metoprolol Succinate (Metoprolol Succinate) 100 Mg Tab.er.24h, 50 MG PO BID, (Reported) Entered as Reported by: MILDRED MCCAIN on 08/27/18 1332 Mv,Minerals/FA/Lycopene/Ginkgo (One-A-Day Men's 50+ Tablet) 1 Each Tablet, 1 EACH PO DAILY, (Reported) Entered as Reported by: MILDRED MCCAIN on 08/27/18 1332 Nitrofurantoin Monohyd/M-Cryst (Macrobid 100 mg Capsule) 100 Mg Capsule, 1 TAB PO BID WITH MEALS Prescribed by: KHADIJAH ALVAREZ on 03/06/21 1031 Tamsulosin HCl (Flomax) 0.4 Mg Cap, 0.4 MG PO DAILY, (Reported) Entered as Reported by: MILDRED MCCAIN on 08/27/18 1332 Tamsulosin HCl (Flomax) 0.4 Mg Cap, 0.4 MG PO DAILY Prescribed by: KHADIJAH ALVAREZ on 03/06/21 1031 Review of Systems Review of Systems Constitutional: see HPI Past Oxpfhjt-Azxllm-Pxwbfs Hx Patient Social History Tobacco Use?: No Substance use?: No Alcohol Use?: No Immunizations Up To Date Tetanus Booster (TDap): Unknown First/Initial COVID19 Vaccinat: 09/25 Second COVID19 Vaccination Doc: 09/25 Third COVID19 Vaccination Date: 09/25 Seasonal Allergies Seasonal Allergies: No Past Medical History Surgery/Hospitalization HX: HEART ATTACK 2007, HTN Surgeries: Yes (hemmorhoids, ANGIOPLASTY PRIOR TO STENT, lithotripsy, foot sx) Coronary Stent Respiratory: Yes Sleep Apnea Currently Using CPAP: Yes Currently Using BIPAP: No Cardiac: Yes (2006 [place] w angioplasty; 2008 stent x1) Coronary Artery Disease, Heart Attack, High Cholesterol, Hypertension Neurological: Yes TIA Reproductive Disorders: No Sexually Transmitted Disease: No HIV/AIDS: No Genitourinary: Yes Benign Prostatic Hyperpl, Prostate Problems, Kidney Stones Gastrointestinal: Yes Gastroesophageal Reflux Musculoskeletal: Yes Arthritis, Chronic Back Pain, Gout Endocrine: No HEENT: Yes (bilat retinal detachment) Loss of Vision: Right Hearing Impairment: Hard of Hearing Cancer: No Psychosocial: No Integumentary: No Blood Disorders: No Adverse Reaction/Blood Tranf: No (N/A) Family Medical History FH: stomach cancer maternal grandfather, Onset:60 years & older Myocardial infarction 19 FATHER, Onset:60 years & older 19 MOTHER, Onset:60 years & older G8 BROTHER, Onset:60 years & older paternal grandfather, Onset:Unknown Hypertension Physical Exam Vital Signs Vital Signs - First Documented 02/23/23 11:33 Temp 35.8 Pulse 66 B/P (MAP) 119/78 (92) Pulse Ox 93 O2 Delivery Room Air Capillary Refill : Height/Weight/BMI Height: 5'11.00" Weight: 218lbs. 0.0oz. 98.266285us; 30.00 BMI Method: General Appearance: WD/WN, no apparent distress Neck: supple, normal inspection Respiratory: lungs clear, normal breath sounds, no respiratory distress, no accessory muscle use Cardiovascular: regular rate, rhythm Gastrointestinal: normal bowel sounds, soft; No guarding; tenderness (Left lower quadrant at pant line); No hernia Extremities: normal range of motion, normal inspection Neurologic/Psychiatric: alert, normal mood/affect Skin: normal color, warm/dry Progress/Results/Core Measures Results/Orders Lab Results Laboratory Tests Test 02/23/23 11:35 02/23/23 12:30 Range/Units White Blood Count 13.7 H 4.3-11.0 10^3/uL Red Blood Count 4.43 4.30-5.52 10^6/uL Hemoglobin 13.3 13.3-17.7 g/dL Hematocrit 40 40-54 % Mean Corpuscular Volume 91 80-99 fL Mean Corpuscular Hemoglobin 30 25-34 pg Mean Corpuscular Hemoglobin Concent 33 32-36 g/dL Red Cell Distribution Width 14.3 10.0-14.5 % Platelet Count 217 130-400 10^3/uL Mean Platelet Volume 9.0 9.0-12.2 fL Immature Granulocyte % (Auto) 1 % Neutrophils (%) (Auto) 73 42-75 % Lymphocytes (%) (Auto) 14 12-44 % Monocytes (%) (Auto) 11 0-12 % Eosinophils (%) (Auto) 1 0-10 % Basophils (%) (Auto) 0 0-10 % Neutrophils # (Auto) 10.0 H 1.8-7.8 10^3/uL Lymphocytes # (Auto) 2.0 1.0-4.0 10^3/uL Monocytes # (Auto) 1.5 H 0.0-1.0 10^3/uL Eosinophils # (Auto) 0.2 0.0-0.3 10^3/uL Basophils # (Auto) 0.0 0.0-0.1 10^3/uL Immature Granulocyte # (Auto) 0.1 0.0-0.1 10^3/uL Sodium Level 139 135-145 MMOL/L Potassium Level 3.9 3.6-5.0 MMOL/L Chloride Level 105 98-107 MMOL/L Carbon Dioxide Level 25 21-32 MMOL/L Anion Gap 9 5-14 MMOL/L Blood Urea Nitrogen 18 7-18 MG/DL Creatinine 1.20 0.60-1.30 MG/DL Estimat Glomerular Filtration Rate 60 BUN/Creatinine Ratio 15 Glucose Level 125 H 70-105 MG/DL Calcium Level 9.0 8.5-10.1 MG/DL Corrected Calcium 9.1 8.5-10.1 MG/DL Total Bilirubin 1.3 H 0.1-1.0 MG/DL Aspartate Amino Transf (AST/SGOT) 14 5-34 U/L Alanine Aminotransferase (ALT/SGPT) 8 0-55 U/L Alkaline Phosphatase 76 40-136 U/L Total Protein 7.6 6.4-8.2 GM/DL Albumin 3.9 3.2-4.5 GM/DL Lipase 6 L 8-78 U/L Urine Color YELLOW Urine Clarity CLEAR Urine pH 6.0 5-9 Urine Specific [place] 1.020 1.016-1.022 Urine Protein TRACE H NEGATIVE Urine Glucose (UA) NEGATIVE NEGATIVE Urine Ketones NEGATIVE NEGATIVE Urine Nitrite NEGATIVE NEGATIVE Urine Bilirubin NEGATIVE NEGATIVE Urine Urobilinogen 0.2 < = 1.0 MG/DL Urine Leukocyte Esterase NEGATIVE NEGATIVE Urine RBC (Auto) TRACE H NEGATIVE Urine RBC 5-10 H /HPF Urine WBC RARE /HPF Urine Squamous Epithelial Cells NONE /HPF Urine Crystals NONE /LPF Urine Bacteria NEGATIVE /HPF Urine Casts NONE /LPF Urine Mucus NEGATIVE /LPF Urine Culture Indicated NO My Orders Orders - KAREN ALVAREZ APRN Ua Culture If Indicated (02/23/23 11:29) Comprehensive Metabolic Panel (02/23/23 11:42) Lipase (02/23/23 11:42) Ed Iv/Invasive Line Start (02/23/23 11:42) Cbc And Automated Diff (02/23/23 11:42) Ns Iv 500 Ml (Ns Iv 500 Ml) (02/23/23 11:45) Fentanyl Injection (Fentanyl Injection (02/23/23 11:45) Ct Abdomen/Pelvis W (02/23/23 13:08) Amoxicillin/Clavulanate Tablet (Amoxicil (02/23/23 14:30) Medications Given in ED Current Medications Medications Dose Ordered Sig/Leandro Route Start Time Stop Time Status Last Admin Dose Admin Amoxicillin/ Clavulanate Potassium 875 mg ONCE ONCE PO 02/23/23 14:30 02/23/23 14:31 DC 02/23/23 14:26 875 MG Fentanyl Citrate 50 mcg ONCE ONCE IVP 02/23/23 11:45 02/23/23 11:46 DC 02/23/23 12:34 50 MCG Iohexol 100 ml ONCE ONCE IV 02/23/23 13:15 02/23/23 13:18 DC 02/23/23 13:25 80 ML Sodium Chloride 100 ml ONCE ONCE IV 02/23/23 13:15 02/23/23 13:18 DC 02/23/23 13:27 80 ML Sodium Chloride 500 ml @ 0 mls/hr Q0M ONCE IV 02/23/23 11:45 02/23/23 11:46 DC 02/23/23 12:34 0 MLS/HR Vital Signs/I&O 02/23/23 02/23/23 11:33 14:29 Temp 35.8 Pulse 66 59 B/P (MAP) 119/78 (92) 140/80 Pulse Ox 93 93 O2 Delivery Room Air Room Air Blood Pressure Mean: 92 Progress Progress Note : Progress Note Patient seen and evaluated, resting comfortably in bed, no acute distress. Based on exam and symptoms, differential diagnosis includes was not limited to nephrolithiasis, UTI, pyelonephritis, diverticulitis, hernia, other intra- abdominal pathology. Work-up initiated included CBC, CMP, lipase, UA. 500 mL IV fluids ordered. 1309 Labs reviewed. CBC shows elevated WBC 13.7. CMP shows slightly elevated glucose 125, slightly elevated total bilirubin 1.3, lipase normal. Urinalysis shows trace protein, trace RBCs, negative for infection. CT abdomen pelvis with contrast ordered. 1422 CT reviewed. It shows acute proximal sigmoid diverticulitis without abscess, obstruction, or perforation. Also shows probable bilateral renal cell carcinoma. No findings of regional or metastatic disease. Chart review revealed that a CT in February 2021, showed indeterminate hyperdense bilateral renal cortical lesions. Ultrasound in February 2021 also showed bilateral solid renal masses. They reported that renal cell carcinomas cannot be excluded. Results discussed with patient. Current symptoms likely related to diverticulitis. Patient did not seem to be aware of renal masses. Informed him that this could likely be cancerous. I instructed him that he needs to follow- up with oncology. Will treat his diverticulitis with Augmentin and have patient follow-up with Dr. Lynch who he has seen previously for his colonoscopies. I will give the first dose now. Will also send him home with pain medication. Patient is stable for discharge. Discharge instructions and return precautions provided. Diagnostic Imaging Diagonstic Imaging: CT Plain Films/CT/US/NM/MRI: abdomen, pelvis Comments [facility], [place] NAME: RADHAWILEY [facility] REC#: [id number] PT STATUS: REG ER : 1940 PHYSICIAN: KAREN ALVAREZ APRN ADMIT DATE: 02/23/23/ER Signed Date of Exam:02/23/23 CT ABDOMEN/PELVIS W PROCEDURE: CT abdomen and pelvis with contrast. TECHNIQUE: Multiple contiguous axial images were obtained through the abdomen and pelvis after administration of intravenous contrast. Auto Exposure Controls were utilized during the CT exam to meet ALARA standards for radiation dose reduction. All CT scans use one or more of the following dose optimizing techniques: automated exposure control, MA and/or KvP adjustment based on patient size and exam type or iterative reconstruction. INDICATION: Left lower quadrant pain with an elevated white blood cell count, blood in urine. Compared with noncontrasted CT abdomen and pelvis dated 02/20/2021. There are convincing features of acute diverticulitis at the proximal sigmoid colon in the left lower quadrant. There is regional diverticula, sigmoidal thickening and perisigmoidal stranding and edema. No abscess or drainable fluid collection. No bowel obstruction and no fistula or abscess formation. There are findings very suspicious for bilateral renal cell carcinoma. Heterogeneously enhancing solid partly exophytic mass off the upper pole of the right kidney measures 4.7 cm axial by 4 cm cephalocaudal. Heterogeneously enhancing mass or adjacent masses off the lower pole of the left kidney measured a maximal dimension 4.6 cm. In addition, there is a simple benign right lower pole renal cortical cyst and nonobstructing bilateral nephrolithiasis. The bilateral adrenal glands are negative. Both renal veins in the cava are patent. Renal arteries patent, atherosclerotic but without stenosis. There is bibasilar partial atelectasis. There is a small to moderate pericardial effusion measuring an average thickness of 1.3 cm, no basilar pleural fluid. No liver mass. The gallbladder and bile ducts unremarkable. The bilateral adrenal glands are normal. Spleen and pancreas negative. There is a small fatty umbilical hernia, noninflamed. Urinary bladder unremarkable. Prostamegaly is partly calcified. There is a trace amount of pelvic free fluid. No acute loculated collection. There is no suspicious lytic or sclerotic bone lesion with chronic degenerative changes noted and no acute-appearing osseous pathology. IMPRESSION: 1. Acute proximal sigmoid diverticulitis without abscess obstruction or perforation. No visible fistula. 2. Probable bilateral renal cell carcinoma, right upper and left lower poles. On the left there may be adjacent separable solid renal masses. 3. No findings of regional or distant metastatic disease however. Dictated by: Dictated on workstation # [id number] Dict: 02/23/23 1341 Trans: 02/23/23 1416 [facility] [id number] Interpreted by: JAGJIT TORRES Electronically signed by: JAGJIT TORRES 02/23/23 1416 Departure Impression Primary Impression: Diverticulitis Additional Impression: Renal mass Disposition: 01 HOME, SELF-CARE Condition: Stable Departure-Patient Inst. Decision time for Depature: 14:22 Referrals: MIGUEL MIRANDA MD (PCP/Family) Primary Care Physician SHEBA LYNCH MD, BOBAN N Patient Instructions: Clear Liquid Diet, Diverticulitis Add. Discharge Instructions: Your CT scan shows that you may have cancer of your kidneys. You need to see an oncologist. I have provided the phone phone number for Dr. Richard. Call his office tomorrow to schedule a follow-up appointment for this week. Complete full course of antibiotic as prescribed for the diverticulitis. Take [place] as needed for pain. It may make you sleepy. It may also cause constipation. Consume a clear liquid diet for the next 24 hours to give your bowels a rest. Follow-up with Dr. Lynch. Return for severe pain, fever, or any other new, concerning, or worsening symptoms. All discharge instructions reviewed with patient and/or family. Voiced understanding. Scripts Hydrocodone/Acetaminophen (Hydrocodone-Acetamin 5-325 mg) 5 Mg-325 Mg Tablet 1 TAB PO Q4H PRN for PAIN-MODERATE (5-7), #12 TAB 0 Refills Prov: KAREN ALVAREZ APRN 02/23/23 Amoxicillin/Potassium Clav (Amox Tr-K Clv 875-125 mg Tab) 875 Mg-125 Mg Tablet 1 EACH PO BID for 10 Days, #20 TAB 0 Refills Prov: KAREN ALVAREZ APRN 02/23/23 Copy Copies To 1: VICTORINO RICHARD Copies To 2: MIGUEL MIRANDA MD, BRITTANY R APRN Feb 23, 2023 11:45
[2023-02-23 11:57] LABS: BASOPHILS % (AUTO) 0 % (0-10); EOSINOPHILS # (AUTO) 0.2 10^3/uL (0.0-0.3); EOSINOPHILS % (AUTO) 1 % (0-10); HEMATOCRIT 40 % (40-54); HEMOGLOBIN 13.3 g/dL (13.3-17.7); LYMPHOCYTES % (AUTO) 14 % (12-44); MEAN CORPUSCULAR HEMOGLOBIN 30 pg (25-34); MEAN CORPUSCULAR HGB CONC 33 g/dL (32-36); MEAN CORPUSCULAR VOLUME 91 fL (80-99); MONOCYTES # (AUTO) 1.5 10^3/uL (0.0-1.0); MONOCYTES % (AUTO) 11 % (0-12); NEUTROPHILS % (AUTO) 73 % (42-75); PLATELET COUNT 217 10^3/uL (130-400); WHITE BLOOD COUNT 13.7 10^3/uL (4.3-11.0)
[2023-02-23 12:00] LABS: ALBUMIN 3.9 GM/DL (3.2-4.5); POTASSIUM 3.9 MMOL/L (3.6-5.0)
[2023-02-23 12:02] LABS: TOTAL PROTEIN 7.6 GM/DL (6.4-8.2)
[2023-02-23 12:04] LABS: BILIRUBIN,TOTAL 1.3 MG/DL (0.1-1.0)
[2023-02-23 12:06] LABS: CREATININE SERUM 1.2 MG/DL (0.60-1.30)
[2023-02-23 12:59] LABS: CLARITY,URINE CLEAR; COLOR,URINE YELLOW; GLUCOSE, URINE (UA) NEGATIVE (NEGATIVE); PROTEIN,URINE TRACE (NEGATIVE)
[2023-02-23 13:00] LABS: BACTERIA,URINE NEGATIVE /HPF; BILIRUBIN,URINE NEGATIVE (NEGATIVE); KETONES,URINE NEGATIVE (NEGATIVE); LEUKOCYTE ESTERASE ,URINE NEGATIVE (NEGATIVE); NITRITE,URINE NEGATIVE (NEGATIVE); WBC,URINE RARE /HPF
[2023-02-23] MEDS ORDERED: NS 100 ML (IVPB) BAG IV ONE (13:15)
[2023-02-23] MEDS ORDERED: IOHEXOL 350 MG/ML 100 ML (OMNIPAQUE 350) VIAL IV ONE (13:15)
[2023-02-23] MEDS ORDERED: HOLD METFORMIN - RECEIVED CONTRAST 20 ML VIAL IV SCH (13:15)
--- NOTE | 2023-02-23 13:54 | Diagnostic Imaging Report ---
PROCEDURE: CT abdomen and pelvis with contrast. TECHNIQUE: Multiple contiguous axial images were obtained through the abdomen and pelvis after administration of intravenous contrast. Auto Exposure Controls were utilized during the CT exam to meet ALARA standards for radiation dose reduction. All CT scans use one or more of the following dose optimizing techniques: automated exposure control, MA and/or KvP adjustment based on patient size and exam type or iterative reconstruction. INDICATION: Left lower quadrant pain with an elevated white blood cell count, blood in urine. Compared with noncontrasted CT abdomen and pelvis dated 02/20/2021. There are convincing features of acute diverticulitis at the proximal sigmoid colon in the left lower quadrant. There is regional diverticula, sigmoidal thickening and perisigmoidal stranding and edema. No abscess or drainable fluid collection. No bowel obstruction and no fistula or abscess formation. There are findings very suspicious for bilateral renal cell carcinoma. Heterogeneously enhancing solid partly exophytic mass off the upper pole of the right kidney measures 4.7 cm axial by 4 cm cephalocaudal. Heterogeneously enhancing mass or adjacent masses off the lower pole of the left kidney measured a maximal dimension 4.6 cm. In addition, there is a simple benign right lower pole renal cortical cyst and nonobstructing bilateral nephrolithiasis. The bilateral adrenal glands are negative. Both renal veins in the cava are patent. Renal arteries patent, atherosclerotic but without stenosis. There is bibasilar partial atelectasis. There is a small to moderate pericardial effusion measuring an average thickness of 1.3 cm, no basilar pleural fluid. No liver mass. The gallbladder and bile ducts unremarkable. The bilateral adrenal glands are normal. Spleen and pancreas negative. There is a small fatty umbilical hernia, noninflamed. Urinary bladder unremarkable. Prostamegaly is partly calcified. There is a trace amount of pelvic free fluid. No acute loculated collection. There is no suspicious lytic or sclerotic bone lesion with chronic degenerative changes noted and no acute-appearing osseous pathology. IMPRESSION: 1. Acute proximal sigmoid diverticulitis without abscess obstruction or perforation. No visible fistula. 2. Probable bilateral renal cell carcinoma, right upper and left lower poles. On the left there may be adjacent separable solid renal masses. 3. No findings of regional or distant metastatic disease however. Dictated by: Dictated on workstation # [id number]
[2023-02-23] MEDS ORDERED: AMOX1TAB12 PO (14:27)
[2023-02-23] MEDS ORDERED: ACHD5005 PO (14:27)
[2023-02-23 14:29] VITALS: BP 140/80
[2023-02-23] MEDS ORDERED: AMOXICILLIN/Clavulanate 875 MG TABLET PO ONE (14:30)
== END 2023-02-23 14:44 | disposition home or self-care (01) ==
LOC: EDUNIT# 11:24 → ER 11:25
DX: K57.92 Diverticulitis of intestine, part unspecified, without perforation or abscess without bleeding (principal); N28.9 Disorder of kidney and ureter, unspecified; G47.30 Sleep apnea, unspecified; Z87.442 Personal history of urinary calculi; Z99.89 Dependence on other enabling machines and devices
CPT/HCPCS: 36415; 74177; 80053; 81000; 83690; 85025; 96361; 96374